=== PATIENT | male | born 1940 ===

== ENCOUNTER → 2018-12-27 09:39 | Outpatient (CLI) | payer MEDICARE, OTHER, SELFPAY ==
--- NOTE | 2018-12-27 | DI.MRI.S_ITS ---
PROCEDURE: MR LUMBAR SPINE WO CON INDICATIONS: LOW BACK PAIN TECHNIQUE: Noncontrast sagittal T1 spin echo and T2 fast echo, sagittal STIR, axial T1 and T2 fast spin echo through the lumbar spine. In cases with scoliosis, additional coronal T2 fast spin echo may be performed. COMPARISON: None. FINDINGS: Image quality: Excellent. Alignment and Curvature: There is very mild levoscoliosis centered at L2-3 level. Straightening of normal lumbar lordosis is also noted. Bone Marrow: Marrow is of normal overall signal. No acute vertebral body compression fractures. Spinal Cord: Conus medullaris terminates at the T12-L1 level. Visualized cord demonstrates normal signal and size. Paraspinous Soft Tissues: No paravertebral masses. L1-L2: Decreased intervertebral disc space and degenerative endplate changes are seen. Broad-based disc bulge and bilateral facet arthrosis is seen causing moderate central canal stenosis left worse than right bilateral neuroforaminal narrowing. There is likely compression of bilateral exiting L1 nerve roots. L2-L3: Decreased intervertebral disc space and degenerative endplate changes are seen. Broad-based disc bulge and bilateral facet arthrosis is seen with moderate central canal stenosis and moderate to severe left worse than right bilateral neuroforaminal narrowing. There is compression of bilateral exiting L2 nerve roots. L3-L4: Near-complete loss of intervertebral disc space and degenerative endplate changes are seen. Broad-based disc bulge and bilateral facet arthrosis is seen causing moderate to severe central canal stenosis and bilateral neuroforaminal narrowing. There is likely compression of the lateral L3 nerve roots. L4-L5: Decreased intervertebral disc space and degenerative endplate changes are seen. Broad-based disc bulge and bilateral facet arthrosis with hypertrophy of ligamentum flavum is seen causing moderate to severe central canal stenosis and left worse than right bilateral neuroforaminal narrowing. There is compression of bilateral L4 and L5 nerve roots. L5-S1: Decreased intervertebral disc space and degenerative endplate changes are seen. Diffuse disc bulge and bilateral facet arthrosis is seen with mild to moderate central canal stenosis and moderate to severe bilateral neuroforaminal narrowing. There is compression of bilateral L5 nerve roots. IMPRESSION: #1. Degenerative endplate changes and bilateral facet arthrosis throughout lumbar spine causing [id number] central canal stenosis and moderate to severe bilateral neuroforaminal narrowing as described above. #2. No acute compression fracture or spondylolisthesis. No marrow edema. Dictated by: Julius Basurto M.D. on 12/27/2018 at 13:04 Approved by: Julius Basurto M.D. on 12/27/2018 at 14:36
== END ==
PROVIDERS: Family Provider Family Medicine; PCP Family Medicine; Visit Provider Orthopaedic Surgery
DX: M47.816 Spondylosis without myelopathy or radiculopathy, lumbar region (principal); M47.817 Spondylosis without myelopathy or radiculopathy, lumbosacral region; M51.26 Other intervertebral disc displacement, lumbar region; M51.27 Other intervertebral disc displacement, lumbosacral region
CPT/HCPCS: 72148

== ENCOUNTER 2019-07-03 11:27 | Inpatient (IN) | payer MEDICARE, OTHER, SELFPAY ==
[2019-06-19 08:51] VITALS: BMI 30.7
[2019-07-03] VITALS (14 sets, daily range): BP systolic 97–144; BP diastolic 41–78; PULSE 64–100; RESP 10–19; TEMP 36.1–36.7; O2SAT 95–99; BMI 30.7
--- NOTE | 2019-07-03 | DI.RAD.S_ITS ---
PROCEDURE: XR LUMBAR SPINE 2-3V INDICATIONS: L5-S1 TLIF TECHNIQUE: 2 views of the lumbar spine were acquired. COMPARISON: [facility] [place], RF, LUMBAR TRANSFORAMINAL ESTEPHANIE, 02/16/2019, 11:08. [facility] [place], CR, XR LUMBAR SPINE WITH OBLIQUES, 01/23/2019, 14:05. [facility], MR, MR LUMBAR SPINE WO CON, 12/27/2018, 9:44. FINDINGS: Bones: Normal alignment is established after placement of transverse pedicle screws and vertical fixation rods with interbody disc prosthesis placement vertical fixation rods with disc prosthesis at L5-S1. Soft tissues: Overlying bowel gas pattern is normal. No suspicious soft tissue calcifications. IMPRESSION: Normal alignment after operative fusion L5-S1. Dictated by: Abhinav Evans M.D. on 07/03/2019 at 16:15 Approved by: Abhinav Evans M.D. on 07/03/2019 at 16:16
[2019-07-03] MEDS: LACTATED RINGERS 1,000 ML 42 ML IV ×2 (12:41→15:40)
[2019-07-03] MEDS: ACETAMINOPHEN 325 MG TABLET 975 MG PO (12:41)
--- NOTE | 2019-07-03 13:09 | PM.PREOP ---
Pre-operative Note Interval Note History & Physical reviewed/Exam performed by Physician: Yes Changes to H&P: No
[2019-07-03] MEDS: CEFAZOLIN 2 GM/100 ML FROZ.PIGGY IV ×2 (13:50→21:04)
--- NOTE | 2019-07-03 14:30 | SUR.OPER ---
Prone on spine table, head in foam head support, padded chest and pelvic supports, gel pad at knees, lower legs supported by pillows; nipples, genitalia and toes free of pressure, arms secured on foam padded arm boards at <90 degrees abduction. Tape over blanket at thigh secured to table.
[2019-07-03] MEDS: BUPIVACAINE 0.25% W/ EPI (PF) 10 ML VIAL 30 ML INJ (14:34)
[2019-07-03] MEDS: BUPIVACAINE LIPOSOME 266 MG/20 ML VIAL INJ (14:35)
--- NOTE | 2019-07-03 15:56 | PM.PREOP ---
Pre-operative Note Interval Note History & Physical reviewed/Exam performed by Physician: Yes Changes to H&P: No
--- NOTE | 2019-07-03 15:57 | P.OP_ITS ---
Operative Date/Time/Diagnoses Date of procedure: 07/03/19 Time of procedure: 12:57 Pre-op diagnosis: 1. L4-5, L5-S1 spinal stenosis 2. L4-5, L5-S1 spondylosis with radiculopathy Post-op diagnosis: same Procedure & Clinicians Procedure: 1. L5-S1 Postero-lateral and posterior interbody fusion 2. L5-S1 interbody cage placement. 3. L5-s1 decompressive laminectomy with bilateral facetecomies 4. L5-S1 Posterior non-segmental instrumentation 5. L4-5 left hemilaminectomy 6. Center Sandwich of bone marrow from iliac crest 7. Utilization of microsurgical technique and operating microscope Same procedure as scheduled: Yes Indications: Patient has been having chronic back pain and worsening lumbar radiculopathy. Patient failed multiple conservative management with worsening pain weakness and numbness in her lower extremity. Patient has been having difficulty performing activity of daily living. After discussing risks benefits of treatment options, patient elected proceed with surgery. Surgeon: Florence Bryant Higher Level Teaching Assistant: Katerina Orozco Click Yes if Unassisted: No Anesthesia Type: General Operative Notes Closure Type: primary Specimen(s): none sent Prosthetic devices, grafts, tissues, transplants, or devices: Globus revolve screws, Rise cage Estimated Blood Loss (mL): 50 Blood products transfused: none Procedure in detail: Patient was seen in the preoperative area. Risks and benefits of the surgery was discussed with the patient. Informed consent was obtained from the patient and placed in the chart. Surgical site was marked. Patient was taken to the operative room. General anesthesia was administered. Prophylactic antibiotic was given to the patient less than 30 min before the incision was made. Patient was placed into a prone position on the Angel table. Patient's back was then prepped and draped in the sterile fashion. Time- out was performed at this time. Using AP and lateral C-arm imaging the interval between L4-5 L5-S1 was identified and marked on patient's back. A 2 inch incision 2 in from midline was made on the left side first. The fascia was incised in line with skin incision. Globus MARS retractors was placed inside the incision and docked onto the L5 lamina. Using microsurgical technique and operating microscope, a L5 laminectomy and L5-S1 facetectomy was performed using a Kerrison rongeur. Patient was found have severe neural foramen stenosis which was fully decompressed after the facetectomy was completed. The disc space at L5-S1 was identified. And a total diskectomy was performed at L5-S1 level. The endplates were decorticated using a rasp and shaver. The total diskectomy and dec ortication was performed at L5-S1 level in order to to accomplish a L5-S1 fusion. The local bone from the laminectomy and facetectomy was saved for local bone grafting. After the total diskectomy and decortication was completed, Globus viacell bone graft material was combined with local bone that was harvested earlier. At this time, a separate skin is incision was made over the iliac crest. A Jamshidi needle was inserted into the iliac crest through a separate skin incision. 5 cc of bone marrow aspiration was obtained through the separate skin incision using a Jamshidi needle from the iliac crest. The bone marrow aspiration was combined with local bone and the via cell bone grafting material. The bone grafting material was placed into the L5-S1 interbody space along with a expandable cage. The cage was expanded to its maximum height using the torque limiting screwdriver. At this time the MARS retractor was redirected over the L4 lamina. Using microsurgical technique and operating microscope, a L4-5 heminectomy was performed using the Kerrison rongeur. The ligamentum flavum was also resected at the side of the hemilaminectomy for further decompression of the epidural space. At this time a mirror image incision was made on the right side. The fascia was incised in line with the skin incision. Globus MARS retractor was inserted and docked onto the L5-S1 posterolateral gutter. Using the power drill, posterior- lateral decortication was performed at L5-S1 level until bleeding cortical bone was identified. The remaining bone grafting material was placed into the L5-S1 posterior lateral gutter he order to accomplish posterolateral fusion at the L5- S1 level. Using the double C-arm technique, pedicle screws were placed into the L5 and S1 pedicles bilaterally. This was done by placing the Jamshidi needle into the pedicles, then placing the guidewires over the Jamshidi needle, and finally placing the cannulated screws over the guidewires bilaterally. After the pedicle screws were placed, 2 titanium rods was locked into the heads of the pedicle screws using locking caps and torque limiting screwdriver. After all the hardware was placed, and confirmed with AP and lateral C-arm imaging, the wound was then irrigated with sterile normal saline and packed with Ray-Edyta gauze for 3 min to accomplish hemostasis. After the gauze was removed the deep fascia was closed with #1 Vicryl suture. The subcutaneous layer was closed with 2-0 Vicryl. The skin was closed with skin kiesha. Patient tolerated the procedure well. There were no complications. Complications: none Post-operative Condition: stable Disposition: PACU Plan for aftercare: Admit to inpatient hospital
[2019-07-03] MEDS: hydrOXYzine 50 MG/ML INJ 25 MG IM (16:10)
[2019-07-03] MEDS: HYDROMORPHONE 2 MG INJ IV ×4 (16:10→16:25)
[2019-07-03] MEDS: SODIUM CHLORIDE 0.9% 1,000 ML 100 ML IV (17:52)
--- NOTE | 2019-07-03 17:53 | PC.NURSE ---
Post-op note: Ole brought from PACU to rm 212 med-surg at 1641, VS stable, BP slightly hypotensive, he denies dizziness or nausea. Oriented x 3 and situation. He reports back is sore but denies pain or need for intervention except for repositioning. Told me I feel like I need to turn but it is not because I am having pain. Back drsg with small spot of shadow drainage to distal drsg. 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 He has small scattered bruising and skin tear to left elbow, open to air, CDI.
[2019-07-03] MEDS: PANTOPRAZOLE 20 MG TABLET PO (21:04)
[2019-07-03] MEDS: CHOLECALCIFEROL (VITAMIN D3) 1,000 UNIT TABLET 1000 UNIT PO (21:04)
[2019-07-03] MEDS: DOCUSATE 100 MG CAPSULE PO (21:04)
[2019-07-03] MEDS: SENNOSIDES 8.6 MG TABLET 17.2 MG PO (21:04)
[2019-07-03] MEDS: MULTIVITAMIN 1 TABLET 1 TAB PO (21:04)
[2019-07-03] MEDS: VIT C/E/ZN/COPPR/LUTEIN/ZEAXAN CAPSULE 1 CAP PO (21:04)
[2019-07-04] MEDS: OXYCODONE IR 5 MG TABLET 10 MG PO ×2 (00:04→05:00)
--- NOTE | 2019-07-04 01:47 | PC.NURSE ---
Addendum entered by Kira Gimenez R.N. 07/04/19 05:05: Complains of 8/10 back pain dull, achy; medicated with Oxycodone. Original Note: Patient is alert and oriented. MESA GRANDE with bilateral hearing aids. Complains of left eye tearing and vision blurry; no redness, pain or itching. Breath sounds CTA with RA sat of 96%. HRR. Denies nausea. BT present but denies flatus as yet. Voiding without dysuria, frequency or urgency and is continent. Able to turn himself in bed. Up to bathroom with walker and 1 assist. Dressing to back with shadow drainage outlined. CMS intact except for chronic numbness in bilateral feet. Wearing calf SCD's. Has bruise with scabbed abrasion on left elbow and also has bruise on right upper arm. Scabbed abrasions on posterior head and to right side of head. Noted bruise on left thigh as well. Complained of 4/10 pain and was medicated with Oxycodone with pain decreasing to 2/10. Fall risk score is high and bed alarm is activated. Bilateral calf SCD's placed at start of shift.
[2019-07-04 03:40] VITALS: BP 131/61; PULSE 70; RESP 17; TEMP 36.8; O2SAT 96
[2019-07-04] MEDS: CEFAZOLIN 2 GM/100 ML FROZ.PIGGY IV (05:02)
[2019-07-04] MEDS: PANTOPRAZOLE 20 MG TABLET PO (05:39)
[2019-07-04 08:00] VITALS: BP 135/72; PULSE 71; RESP 16; TEMP 36.7; O2SAT 92
[2019-07-04 09:09] LABS: Hematocrit 34.5 % (41-53); Hemoglobin 11.8 g/dL (13.5-17.5)
--- NOTE | 2019-07-04 09:28 | PT.IIE ---
Current Diagnoses Flatback syndrome, site unspecified (07/03/19) Spinal stenosis, lumbar region without neurogenic claudication (07/03/19) Surgery Performed Operation Date: 07/03/19 13:45 Actual Procedures p L4-5 hemilaminectomy, L5-S1 TLIF w/ posterior instrumentation - Florence Bryant MD Surgical History (Last Updated 06/19/19 @ 09:19 by Maddy Louis, RN) History of colonoscopy (Acute 05/20/17) Hx of bilateral cataract extraction (Acute) Hx of laminectomy (Acute ~2008) Hx of tonsillectomy (Acute) Hx of transurethral resection of prostate (Acute) Hx of umbilical hernia repair (Acute) Medical History (Last Updated 06/19/19 @ 09:19 by Maddy Louis RN) BCC (basal cell carcinoma), face (Acute) BPH (benign prostatic hyperplasia) (Acute) Diverticulosis (Acute) Easy bruisability (Acute) Femur fracture, right (Acute) GERD (gastroesophageal reflux disease) (Acute) Hearing impaired (Acute) HTN (hypertension) (Acute) Iron deficiency anemia (Acute) Neuropathy (Acute) Osteoarthritis (Acute) Perforated appendicitis (Acute ~2015) Psoriasis (Acute) Sleep apnea (Acute) Physical Therapy Inpatient Evaluation/Re-Eval M1 PT/OT-IP Prior Functional Status Start: 07/04/19 11:42 Freq: NEEDED Status: Active Protocol: Document 07/04/19 09:28 AB (Rec: 07/04/19 12:13 AB [id number]) Medical Review Prior Functional Status Medical History Reviewed Yes Communication able to make needs known Mobility and Gait pt stated that he is independent with all mobilities and ambulation without AD Social History Household Members none Living Arrangements Mobile home Number of Floors (Floors) One Floor Number of Stairs To Enter/Railing? no steps to enter; pt stated that he will stay at his friends house overnight and has 3 small steps to ente and can hold on to the wall for support Home Environment Standard Height Toilet,Tub/ Shower Home Equipment Front Wheel Walker,Straight Cane,Raised Toilet Seat Without Armrests Additional Social History Comment pt stated that he just sponge bathes and does not take a shower M2 PT-IP Current Condition Start: 07/04/19 11:42 Freq: NEEDED Status: Active Protocol: Document 07/04/19 09:28 AB (Rec: 07/04/19 12:13 AB [id number]) Physical Therapy Current Condition Current Condition Evaluation Date 07/04/19 Treatment Diagnosis s/p L5S1 posterior fusion; L4- S1 lami; difficulty in walking Onset Date 07/03/2019 Precautions Lumbar Precautions Log Roll,No Twisting,Limit Bending,Lifting Restriction of 10 lbs,Gait Belt above Incisional Area M3 PT-IP Subjective Start: 07/04/19 11:42 Freq: NEEDED Status: Active Protocol: Document 07/04/19 09:28 (Rec: 07/04/19 12:13 AB [id number]) Subjective Physical Therapy Visit Type Type Initial Evaluation Visit Start Time 09:28 Visit Stop Time 09:58 Total Visit Minutes 30 Number of [employer] OPERATOR Visits 0 Physical Therapy Visit Comments Patient Comments pt agreeable to do PT Therapy Pain Assessment Pain When Pain Assessed At Rest Pain Present Pain Present Denied Pain M4 PT-IP Mobility and Gait Start: 07/04/19 11:42 Freq: NEEDED Status: Active Protocol: Document 07/04/19 09:28 (Rec: 07/04/19 12:13 AB [id number]) PT-Bed Mobility Assessment Rolling Type of Rolling Log Rolling Supine to Sit Supine to Sit Standby Assistance Sit to Supine Sit to Supine Standby Assistance Scooting Scooting to Edge of Bed Standby Assistance Scooting Up and Down in Bed Standby Assistance PT-Transfer Assessment Sit to and From Stand Sit to and from Stand Standby Assistance,1 Person Assistance Equipment Transfer Assistive Device Gait Belt,Front Wheeled Walker Orthotic/Prosthetic Devices or Brace: Yes Transfers Transfer Destination Chair Transfer Technique ambulated using FWW Transfer Ability Level of Assist Standby Assistance,1 Person Assistance,Use of Upper Extremities Gait Assessment Gait Gait Assistance Required: Standby Assistance Distance (Feet) 150 Able to Maintain Weight Bearing Status Yes During Gait Assistive Devices Assistive Device Gait Belt,Front Wheeled Walker Orthotic/Prosthetic Devices or Brace: No Gait Deviations General Gait Pattern Antalgic,Lateral Trunk Lean Factors Limiting Gait Function Factors Limiting Gait Function Poor Balance Comments Gait Comments pt ambulated using FWW SBA ~ 150 ft. ambulated without AD ~ 50 ft SBA to occasional CGA. educated pt on safety and use of FWW for outdoors/long distance ambulation. pt agreed. Stair Climbing Assessment Evaluation Level of Assist On Stairs 1 Person Assistance Devices Stair Climbing Assistive Devices Left Railing,Right Railing Technique/Endurance Stair Climbing Direction Ascend and Descend Stair Climbing Technique Step to Step Number of Steps Climbed 3 Query Text: Stair Climbing Set # Repetitions (reps) 1 Comments Stair Climbing Comments completed up/down 3 steps using bilateral rails SBA up/down platform step and using L wall for support SBA PT-Balance Assessment Sitting Balance and Reactions Static Sitting Balance Ability Good Dynamic Sitting Balance Ability Good Standing Balance and Reactions Static Standing Balance Ability Good Dynamic Standing Balance Ability Fair Device Used FWW M5 PT-IP Objective Assessments Start: 07/04/19 11:42 Freq: NEEDED Status: Active Protocol: Document 07/04/19 09:28 (Rec: 07/04/19 12:13 [id number]) Orientation Orientation/Cognition Level of Alertness Alert Orientation Name,Age,Birthday,Month,Date, Year,Day of Week,Place, Situation Language Function Ability No Deficits Noted Safety Awareness Understands Safety Issues Memory Description No Deficits Noted Gross Range of Motion Lower Extremity ROM Assessment Within Functional Limits Strength Lower Extremity Strength Assessment Within Functional Limits Coordination Assessment Gross Coordination Gross Coordination WNL Sensation Assessment Sensation Gross Sensation Right LE Impaired Sensation Description Paresthesia Comments Sensation Comments stated chronic L big toe paresthesia Muscle Tone Muscle Tone WNL Yes M6 PT-IP Treatment Start: 07/04/19 11:42 Freq: NEEDED Status: Active Protocol: Document 07/04/19 09:28 AB (Rec: 07/04/19 12:13 [id number]) Physical Therapy Treatment Education Education Provided Precautions,Weight Bearing Status,Post-Op Packet,Safety M7 PT-IP Assessment and Plan Start: 07/04/19 11:42 Freq: NEEDED Status: Active Protocol: Document 07/04/19 09:28 (Rec: 07/04/19 12:13 [id number]) PT Summary Assessment and Plan Potential Rehabilitation Potential Good Status of Condition at Evaluation Stable Summary Impairments Pain,ROM,Strength,Balance, Coordination,Sensation,Tone, Cognition,Bed Mobility, Transfers,Gait,Activity Tolerance Assessment Summary pt requiring SBA with mobility and plans to go home today. pt may go home when medically stable. Goals Bed Mobility Goal Independent Transfer Goal Independent,Front Wheeled Walker Gait Goal Independent,Front Wheel Walker Gait Distance 300 Days to Meet Goals 5 Frequency of Treatment Frequency Of Treatment Twice a Day Treatment Plan Physical Therapy Treatment Plan Bed Mobility Training,Transfer Training,Gait Training, Therapeutic Exercise,Balance Retraining,Post Op Education, Discharge Planning,Hot or Cold Pack,Neuromuscular Re-ed, Coordination Retraining,Manual Therapy Other Recommendations and Next Treatment ambulation, stair climbing Focus Recommendations To Nursing Amount of Assist Needed Standby Assistance Discharge Recommendations PT Discharge Recommendations Home with Assistance
[2019-07-04 09:41] VITALS: BP 137/64; PULSE 72
[2019-07-04] MEDS: LOSARTAN 50 MG TABLET 100 MG PO (09:41)
[2019-07-04] MEDS: CHOLECALCIFEROL (VITAMIN D3) 1,000 UNIT TABLET 1000 UNIT PO (09:41)
[2019-07-04] MEDS: CYANOCOBALAMIN (VITAMIN B-12) 500 MCG TABLET 6000 MCG PO (09:41)
[2019-07-04] MEDS: hydroCHLOROthiazide 25 MG TABLET 50 MG PO (09:42)
[2019-07-04] MEDS: TAMSULOSIN 0.4 MG CAPSULE PO (09:42)
[2019-07-04] MEDS: VIT C/E/ZN/COPPR/LUTEIN/ZEAXAN CAPSULE 1 CAP PO (09:42)
[2019-07-04] MEDS: DOCUSATE 100 MG CAPSULE PO (09:42)
[2019-07-04] MEDS: SODIUM CHLORIDE 0.9% FLUSH 10 ML IV (09:42)
--- NOTE | 2019-07-04 10:50 | OT.IP.EVAL ---
Current Diagnoses Flatback syndrome, site unspecified (07/03/19) Spinal stenosis, lumbar region without neurogenic claudication (07/03/19) Surgery Performed Operation Date: 07/03/19 13:45 Actual Procedures p L4-5 hemilaminectomy, L5-S1 TLIF w/ posterior instrumentation - Florence Bryant MD Past Medical History (Last Updated 06/19/19 @ 09:19 by Maddy Louis, RN) BCC (basal cell carcinoma), face (Acute) BPH (benign prostatic hyperplasia) (Acute) Diverticulosis (Acute) Easy bruisability (Acute) Femur fracture, right (Acute) GERD (gastroesophageal reflux disease) (Acute) Hearing impaired (Acute) HTN (hypertension) (Acute) Iron deficiency anemia (Acute) Neuropathy (Acute) Osteoarthritis (Acute) Perforated appendicitis (Acute ~2015) Psoriasis (Acute) Sleep apnea (Acute) Surgical History (Last Updated 06/19/19 @ 09:19 by Maddy Louis RN) History of colonoscopy (Acute 05/20/17) Hx of bilateral cataract extraction (Acute) Hx of laminectomy (Acute ~2008) Hx of tonsillectomy (Acute) Hx of transurethral resection of prostate (Acute) Hx of umbilical hernia repair (Acute) Occupational Therapy Inpatient Evaluation/Re-Eval M1 PT/OT-IP Prior Functional Status Start: 07/04/19 11:42 Freq: NEEDED Status: Active Protocol: Document 07/04/19 10:50 PJM (Rec: 07/04/19 15:49 PJM [id number]) Medical Review Prior Functional Status Medical History Reviewed Yes Diet/Fluid Consistency Regular Communication WNL Mobility and Gait Pt states that he is independent mobility without AD. He denies recent falls. Activities of Daily Living and IADL's Pt indep with all self care, IADLS. He has assist 1x week from person who cleans up after his 2 pet parrots. Prior Functional Level (Other details) Pt drives. Pt plans to stay overnight with supportive next door neighbor for 1 night after d/c. Social History Household Members none Living Arrangements Mobile home Number of Floors (Floors) One Floor Number of Stairs To Enter/Railing? 1 stair to enter Home Environment High Toilet,Tub/Shower Home Equipment Front Wheel Walker Employment Status Retired Additional Social History Comment Pt is a retired dentist. M2 OT-IP Current Condition Start: 07/04/19 08:33 Freq: Status: Active Protocol: Document 07/04/19 10:50 PJM (Rec: 07/04/19 15:49 PJM [id number]) Occupational Therapy Current Condition Current Condition Evaluation Date 07/04/19 Treatment Diagnosis decreased self care, mobility s/p L4-5 socrates lami, TLIF Post Operative Precautions Lumbar Precautions Log Roll,No Twisting,Limit Bending,Lifting Restriction of 10 lbs,Gait Belt above Incisional Area M3 OT- IP Subjective and Pain Start: 07/04/19 08:33 Freq: Status: Active Protocol: Document 07/04/19 10:50 PJM (Rec: 07/04/19 15:49 PJM [id number]) OT- Subjective Occupational Therapy Visit Type Type Initial Evaluation Visit Start Time 09:59 Visit Stop Time 10:50 Total Visit Minutes 51 Occupational Therapy Visit Comments Patient Comments I think I will do fine at home. I don't have hardly any pain. Patient/Caregiver Goals to go home later today OT Pain Assessment Pain When Pain Assessed At Rest Location back Intensity 1 Scale Used Numeric (1 - 10) Description Aching,Acute M4 OT- IP ADL's Start: 07/04/19 08:33 Freq: Status: Active Protocol: Document 07/04/19 10:50 PJM (Rec: 07/04/19 15:49 PJM [id number]) OT [facility] General Evaluation Self-Feeding Ability Independent OT ADL-Grooming General Evaluation Grooming Ability Independent Comments OT Grooming Comments after education re: body mechanics OT ADL-Oral Care General Eval Oral Care Ability Independent Areas of Assistance Brushing Teeth Devices Oral Care Devices Toothbrush Comments Oral Care Comments after education re: body mechanics OT ADL-Dressing General Eval Upper Body Dressing Ability Independent Lower Body Dressing Ability Independent Areas Needing Assistance Underpants/Brief,Pants/Shorts, Socks,Shoes Comments OT Dressing Comments Provided education re: body mechanics, provided conservation biology professor at pt request. Pt able to don socks by crossing foot over opposite knee with good body mechanics after education. Pt declines sock aid and wears slip on shoes. OT ADL-Toileting General Evaluation Toileting Ability Independent Comments OT Toileting Comments provided education re: body mechanics OT ADL-Bathing Comments OT Bathing Comments Pt declines to shower here, states he showers only 1 x week due to dry skin and does daily sponge bath. Provided education re: body mechanics. M5 OT- IP IADL's Start: 07/04/19 08:33 Freq: Status: Active Protocol: Document 07/04/19 10:50 PJM (Rec: 07/04/19 15:49 PJM [email or web address]) OT-Instrumental Activities of Daily Living Deficits IADL Deficits Identified Deficits Home Safety Awareness Awareness of Need for Assistance at Home Good Awareness Ability to Problem Solve Emergency Able to Problem Solve Situations Medication Management Medication Management No Deficits Identified Money Management Money Management No Deficits Identified Meal Preparation Meal Preparation Caregiver Provides Assist Meal Preparation Comments neighbors will assist PRN Fish Smoker Fish Smoker Caregiver Provides Assist Fish Smoker Comments provided education re: body mechanics, neighbors to assist PRN Driving Driving Caregiver Provides Assist Driving Comments neighbors to assist until pt able M6 OT- IP Functional Cognition Start: 07/04/19 08:33 Freq: Status: Active Protocol: Document 07/04/19 10:50 PJM (Rec: 07/04/19 15:49 PJM [id number]) Cognitive Factors Limiting Selfcare Function Cognitive Ability Level of Alertness Alert Patient Orientation Name,Age,Birthday,Month,Date, Year,Day of Week,Place, Situation Attention Span Ability Capable of Focused Attention, Capable of Sustained Attention Ability to Follow Commands Able to Follow Multi-Step Commands Memory Description Short Term Impaired Safety Awareness No Deficits Noted Problem Solving Ability No deficits Noted Cognitive Comments Cognitive Assessment Comments Pt states he has short term memory deficits. Provided spine precaution packet and showed pt written information sheet re: spine precautions, body mechanics and adapted ADL techniques. OT- Vision and Hearing OT- Hearing Assessment OT- Hearing Assessment Hearing Impaired,Right Ear Impaired,Left Ear Impaired,Use of Hearing Aids OT- Vision Assessment Visual Acuity WFL Vision Assessment Comments Pt does report some excessive watering and blurred vision in L eye since surgery. Per RN he will have segmental paver installer check his eye on his way home from hospital. M7 OT- IP Mobility and Balance Start: 07/04/19 08:33 Freq: Status: Active Protocol: Document 07/04/19 10:50 PJM (Rec: 07/04/19 15:49 PJM [id number]) OT- Bed Mobility Assessment Rolling Type of Rolling Roll to Left Level of Assistance Independent Supine to Sit Supine to Sit Assist Independent Sit to Supine Sit to Supine Assist Independent Scooting Scooting to Edge of Bed Independent OT-Transfer Assessment Sit to and From Stand Sit to and from Stand Independent Transfers Transfer Ability Independent Technique Transfer Destination Bed,Car,Chair,Toilet Transfer Technique Stand Step Pivot Devices Transfer Assistive Devices None Comments Mobility Comments Practiced log roll in/out of bed at pt request, and he is independent with transfers without a device. OT- Gait Assessment Gait Gait Assistance Required: Independent Distance (Feet) 5 Assistive Devices Assistive Device None Comments Gait Ability Comments Pt walking short distances in room without a device, but plans to use FWW in his home. OT- Balance Assessment Sitting Balance and Reactions Static Sitting Balance Ability Good Standing Balance and Reactions Static Standing Balance Ability Good Dynamic Standing Balance Ability Good Comments Other Balance Tests/Deviations/Treatment during lower body dressing : M8 OT- IP Objective Assessments Start: 07/04/19 08:33 Freq: Status: Active Protocol: Document 07/04/19 10:50 PJM (Rec: 07/04/19 15:49 PJM [id number]) OT Gross Range of Motion Upper Extremity Range of Motion Assessment Within Functional Limits OT Strength Upper Extremity Strength Assessment Within Functional Limits Hand Nanotechnologist Strength Hand Dominance Right OT- Coordination Assessment Comments Coordination Comments BUE WFL OT-Muscle Tone Assessment Muscle Tone WNL Yes OT Sensation Assessment Comments Summary Comments BUE WNL per pt Edema Edema Absent M9 OT- IP Assessment and Plan Start: 07/04/19 08:33 Freq: Status: Active Protocol: Document 07/04/19 10:50 PJM (Rec: 07/04/19 15:49 PJM [id number]) OT Summary Assessment and Plan Potential Rehabilitation Potential Good Summary Progress Towards Goals Safe For Discharge Assessment Summary Low complexity OT assessment and all OT education completed in one visit on this 79 yr old male s/p L4-5 socrates lami with TLIF. Provided education re: lumbar spine precautions, body mechanics, chair selection, posture, adapted ADL techniques and bathroom safety equipment options. Pt verbalizes and demonstrates understanding of all education. Pt plans to d/c home later today with assist from 2 supportive neighbors. Frequency of Treatment Frequency Of Treatment Discharge Discharge Recommendations OT Discharge Recommendations Home with Assistance Home Equipment Needs conservation biology professor provided
--- NOTE | 2019-07-04 11:53 | PC.NURSE ---
Blurry vision: Patient C/O L eye watering all night and blurry vision in L eye as well. This pattern chart writer spoke w/ Dr Wise (patient's anesthesiologist during surgery yesterday) and ortho PA's re: patient's symptoms. Dr Wise came up and spoke with patient and wanted him to be seen by opthamology either today or tomorrow. Patient off floor to Dr Wade's office for his opthamology check-up at this time (was taken down via wheelchair by charge hand Adrian). Patient has been cleared by PT and OT, plan as of now is to d/c home this afternoon.
--- NOTE | 2019-07-04 12:18 | CM.DPC ---
DCP/Assessment: Reviewed chart. Patient is a 79yr old male admitted [facility] spine surgery performed on 07-03-[address] Bryant. PCP listed is Krystal Chacon. Primary payor is 1)Medicare 2)[employer]. Attempted to meet with patient to explain CM/SW roles. Per RN/Preston patient is off the floor for outpatient eye appointment. It is anticipated that patient will discharge home today with no d/c planning needs. P: Home today. NAPOLEON Abrams Discharge Planning/Care Management CM Discharge Assessment Start: 07/04/19 12:15 Freq: Status: Active Protocol: Document 07/04/19 12:15 KJS (Rec: 07/04/19 12:18 KJS [id number]) Discharge Planning Assessment Assigned Tube Station Attendant NAPOLEON Abrams Contact Information Alfie Fenton (son) [phone] Advance Directives? No History Provided By Medical Record Prior Living Arrangements Mobile home Household Members none Independent with ADL's Yes Is patient alert and oriented? Yes Caregiver for Another No Barriers to Discharge No Comment Unknown patient at eye appointment at time of visit. Discharge Plan Home Transportation Arrangement Home Review Status In Process Next Review Type Continued Stay Review Pre-Anesthesia Assessment Start: 06/19/19 08:51 Freq: Status: Complete Protocol: Document 06/19/19 08:51 CAB (Rec: 06/19/19 09:31 CAB [id number]) Pre-Anesthesia Assessment PAC Comment 06/19/19-Requested labs/EKG, medical clearance from [facility], only received EKG-poor quality Patient Information Reviewed Via Phone Assessment Assessment Completed With Patient Diagnostic Results EKG Comment [facility] faxed over EKG only Primary Care Provider Krystal Chacon Seen Specialist in Last 12 Months Yes Specialist Seen Orthopedist,Urologist Primary Language Burmese Deck Engine Operator Required No Height 180.34 cm Weight 99.79 kg Body Mass Index (BMI) 30.7 Hearing Ability Hard of Hearing,Use of Hearing Aid Visual Assist Glasses Dentition Type Teeth, Natural Present,Teeth, Missing Barriers to Learning Age related,Memory Other Aids No Hx Anesthesia Reactions No Hx Family Anesthesia Reaction No Hx Malignant Hyperthermia No Hx Blood Transfusions Yes: r/t perforated appendix Hx Blood Transfusion Reaction No Anesthesia Review Requested No alcohol intake current alcohol intake frequency 0-2 drinks per day Smoking Status Former smoker Tobacco type cigarettes how long ago did patient quit smoking Quit over 10 years ago Substance Use Type does not use Pain Present Pain Reported Musculoskeletal Symptoms Abnormal Gait,Back Pain, Difficulty Walking,Joint Pain History of Falling (Recent or History of Yes ) Patient is completely paralyzed or No completely immobile Mental Status Oriented to own ability Is patient on oxygen? No Does patient have SILVESTRE/SOB No Hx Sleep Apnea Yes: Does not tolerate CPAP CPAP/BIPAP use prescribed not used Currently Taking a Beta Katerin No Can You Climb a Flight of Stairs Without No: A little, not significant SOB Hx Chest Pain No Hx SOB No Hx Syncope or Dizziness No Anti-Coagulant Therapy No Has a Epic Application Coordinator No Cardiac Testing No Hx Pacemaker/ICD No Pacemaker Rep Required? No Cardiac Clearance Received Not Applicable Diet Type At Home Regular dysphagia No Bladder Pattern Frequency,Urgency Urinary Catheter Present No Hx Urinary Self Catheterization No Diabetes No Hx Drug Resistant Organism No Presence of External or Internal Medical Yes: Bilateral hearing aids, Devices hernia mesh Have you traveled outside the [facility] in the last 30 days? Marital Status Lives With none Prior Living Arrangements Mobile home Support System [employer]ow[employer],Friend(s) Does the Patient Have Assistance After Yes Surgery Patient Discharge Plan Description Other Comment Will stay w/neighbor [facility] Feels Safe in Current Environment Yes Been Physically Hurt or Threatened By a No Person in Current Environment Do you have thoughts of harming yourself None or others? Are you currently considering suicide? No Do you have a plan to hurt yourself or No Plan others? Do You Have Any Spiritual Beliefs That No May Affect Your HC Choices? Do You Have Any Cultural Practices That No May Affect Your HC Choices? Comment Zoroastrian Who Can We Speak to About Patient's Care Family, friends Identifying Code for Release of Patient Declines to issue Information Health Care Proxy/Next of Kin Jerry Judge (Son, [id number]) Health Care Proxy Phone Number Pt to update dos Emergency Contact Name Jerry Judge (Son, [email or web address]) Emergency Contact Phone Number Pt to update dos Advance Directives? No Power of Auditor In Charge No PAC Instructions Durable medical equipment, Medications to take/avoid, Nasal antibiotic,No ETOH/ petroleum product on skin DOS, NPO,Post-op transportation,Pre -surgical wash,Sturdy shoes/ comfortable clothes,Do not bring valuables and remove jewelry
--- NOTE | 2019-07-04 12:39 | P.PN_ITS ---
Subjective Subjective Date Patient Seen: 07/04/19 Time Patient Seen: 08:00 Interval history: POD 1 s/p L5-S1 TLIF and L4-[address] Bryant. Patient is doing well, complains of mild pain in lower back. Rates 2/10. Able to ambulate to the bathroom. Has not mobilized with PT. Voiding without difficulty or assistance. No bowel movments, but passing gas. Patient denies fever, chills, chest pain, shortness of breath, nausea, vomiting, urinary/bowel incontinence. Exam Vital Signs (past 8 hours): - 07/04/19 08:00 07/04/19 09:41 Temperature 98.1 F Pulse Rate 71 72 Respiratory Rate 16 Blood Pressure 135/72 137/64 Pulse Oximetry 92 Oxygen Delivery Method Room Air Oxygen Flow Rate 0 Narrative Exam Narrative: 79 year old male is laying comfortably in bed, in no apparent distress. A&Ox3. Dressing CDI, SCDs in place. Sensory function grossly intact to light touch in LE bl. Dorsalis pedis 2+ bl. Able to actively dorsiflex/plantar flex. Calves warm, soft, compressible, non tender to palpation. Objective Labs Result Diagrams: 07/04/19 08:38 Labs: Laboratory Results - last 24 hr 07/04/19 08:38 Hgb 11.8 L Hct 34.5 L Assessment & Plan Post-op Postoperative Procedures: Procedures Operation Date: 07/03/19 13:45 Actual Procedures Side Surgeon p L4-5 hemilaminectomy, L5-S1 TLIF w/ posterior instrumentation Florence Bryant MD Postoperative day: 1 Postoperative status: doing well Postoperative plan: discharge Postoperative plan narrative: Patient is progressing well post-op day 1 s/p L5- S1 TLIF and L4-L5 hemilaminectomy Continue current pain control Continue SCDs Start PT Patient may discharge home today pending PT clearance Time Spent With Patient Time with patient: less than 15 minutes Quality VTE Deep Vein Thrombosis/Pulmonary Embolism Present on Admission: No
--- NOTE | 2019-07-04 14:19 | PC.NURSE ---
Discharge: IV dc'd intact. Old dressing removed (per MD order) and replaced with Coversite dressing. 2 parallel incisions on either side of midline (spine) were well-approximated with kiesha, no active bleeding or drainage noted. Reviewed all instructions with patient thoroughly and he stated no further questions. Given script for Oxycodone. All personal belongings sent with patient at time of discharge. Wheeled out to private vehicle by nursing staff.
== END 2019-07-04 14:26 | disposition home or self-care (01) | DRG 455 ==
PROVIDERS: Physician Assistant; Admitting Provider Orthopaedic Surgery Orthopaedic Surgery of the Spine; Family Provider Family Medicine; PCP Family Medicine; Visit Provider Orthopaedic Surgery Orthopaedic Surgery of the Spine
PROC: 0SG30AJ Fusion of Lumbosacral Joint with Interbody Fusion Device, Posterior Approach, Anterior Column, Open Approach (ICD-10-PCS; principal; 2019-07-03 13:45)
DX: M48.062 Spinal stenosis, lumbar region with neurogenic claudication (principal); M40.30 Flatback syndrome, site unspecified; M47.26 Other spondylosis with radiculopathy, lumbar region; M47.27 Other spondylosis with radiculopathy, lumbosacral region; M48.07 Spinal stenosis, lumbosacral region; I10 Essential (primary) hypertension; N40.0 Benign prostatic hyperplasia without lower urinary tract symptoms; K21.9 Gastro-esophageal reflux disease without esophagitis; Z87.891 Personal history of nicotine dependence
CPT/HCPCS: 36415; 72100; 76000; 85014; 85018; 94762; 97161; 97165; 97535; C1776; C9290; J0330; J0690; J1100; J1170; J2405; J2704; J3010; J3410

== ENCOUNTER 2021-11-27 08:05 | Outpatient (CLI) | payer MEDICARE, OTHER, SELFPAY ==
[2019-07-03 17:27] VITALS: BMI 30.7
== END 2021-12-01 09:16 | disposition home or self-care (01) ==
LOC: PHYS 08:07
PROVIDERS: Family Provider Family Medicine; PCP Internal Medicine; Referring Provider Internal Medicine; Visit Provider Internal Medicine
DX: G57.93 Unspecified mononeuropathy of bilateral lower limbs (principal)
CPT/HCPCS: 95886; 95910

== ENCOUNTER → 2022-08-13 12:04 | Outpatient (CLI) | payer MEDICARE, OTHER, SELFPAY ==
[2019-07-03 17:27] VITALS: BMI 30.7
[2022-08-13 12:46] LABS: Appearance Urine UA CLEAR; Bilirubin Urine UA NEGATIVE (NEGATIVE); Color Urine UA YELLOW; Glucose Urine UA NEGATIVE (Negative); Ketones Urine UA NEGATIVE (NEGATIVE); Leukocyte Esterase Urine UA NEGATIVE (NEGATIVE); Nitrite Urine UA NEGATIVE (Negative); Occult Blood Urine UA TRACE-INTACT (Negative); Protein Urine UA NEGATIVE (Negative); Specific Gravity Urine UA <=1.005 (1.000-1.035); Urobilinogen Urine UA 0.2 E.U./dL (0.2)
[2022-08-13 12:55] LABS: Bacteria Urine None Seen; Culture Indicated Urine Cult Not Indicated; RBC Urine 0-1/HPF (0-5/HPF); Squamous Epithelial Cell Urine 0-1 /HPF (0-5/HPF); WBC Urine None Seen (0-5/HPF)
== END ==
PROVIDERS: Family Provider Family Medicine; PCP Internal Medicine; Visit Provider Urology
DX: N99.111 Postprocedural bulbous urethral stricture, male (principal); R35.0 Frequency of micturition; R35.1 Nocturia; R39.14 Feeling of incomplete bladder emptying; R39.9 Unspecified symptoms and signs involving the genitourinary system; Z98.890 Other specified postprocedural states; Z90.79 Acquired absence of other genital organ(s)
CPT/HCPCS: 81001; 99214

== ENCOUNTER 2022-08-18 10:57 | Day surgery (SDC) | payer MEDICARE, OTHER, SELFPAY ==
[2019-07-03 17:27] VITALS: BMI 30.7
[2022-08-12 14:46] VITALS: BMI 29.8
[2022-08-18 11:27] VITALS: BMI 28.8
[2022-08-18 11:34] VITALS: BP 116/63; PULSE 75; RESP 8; TEMP 36.6; O2SAT 97
[2022-08-18] MEDS: LACTATED RINGERS 1,000 ML 21 ML IV (11:47)
--- NOTE | 2022-08-18 12:08 | PM.PREOP ---
Pre-operative Note COVID-19 COVID-19 status: Not tested Criteria for continued procedure: Delay expected to result in less-positive ultimate med/surg outcome and Non-surgical alternatives not available or appropriate per current SOC Interval Note History & Physical reviewed/Exam performed by Physician: Yes Changes to H&P: No
--- NOTE | 2022-08-18 12:52 | SUR.OPER ---
Lithotomy on padded OR bed, head on pillow, arms secured on padded arm boards at <90 degrees abduction. Legs secured in padded yellow fins stirrups.
[2022-08-18] MEDS: CEFAZOLIN 2 GM/100 ML PREMIX 100 ML IV (13:10)
[2022-08-18 13:34] VITALS: BP 104/57; PULSE 87; RESP 13; TEMP 36.6; O2SAT 97
[2022-08-18 13:38] VITALS: BP 111/48; PULSE 84; RESP 13; O2SAT 97
[2022-08-18 13:43] VITALS: BP 109/49; PULSE 83; RESP 15; O2SAT 95
[2022-08-18 13:48] VITALS: BP 118/56; PULSE 81; RESP 11; O2SAT 96
--- NOTE | 2022-08-18 15:46 | PM.OP.1 ---
Procedure & Clinicians Procedure: Cystoscopy with over the wire dilation of urethral stricture. Same procedure as scheduled: Yes Indications: 82-year-old male presented with complaints of resurgence lower urinary tract symptoms and bladder outlet obstruction after a distant history of Transurethral resection of the prostate. Had flexible cystoscopy he was found to have a proximal bulbar urethral stricture that was quite tight. He presents this time for cystoscopy dilation and possible direct vision internal urethrotomy. Surgeon: Alfie Osman Click Yes if Unassisted: Yes Anesthesia Type: General Operative Notes Findings: Findings: Urethral meatus normal urethra normal to the proximal bulbous urethra where there was a tight stricture that is approximately 8 Yemeni. At the end of the procedure it was at least 20 Yemeni and a 20 [place]i [place] tip catheter was left in place with 14 cc in the balloon. The prostatic fossa was of resected with some minimal nodular regrowth. The bladder exhibited severe trabeculation cellules and Gilda diverticula. Ureteral orifices in normal position with clear efflux. There were no other abnormalities noted within the bladder. Closure Type: not applicable Specimen(s): none sent Applied: catheter (Twenty Yemeni [address] [place] tip catheter left in place) Estimated Blood Loss (mL): 0 Procedure in detail: Procedure in detail: After informed consent was obtained, the patient was identified and brought to the operating room. Once in the operating room placed in supine position on the table anesthesia was induced and maintained. Ensuring an adequate level of anesthesia the patient was transitioned to the lithotomy position where he was prepped, draped, prepared for Transurethral procedure. After prepping, draping, time-out and ensuring an adequate level of anesthesia 22 Yemeni cystoscope was passed at the level of the stricture. A extra stiff Amplatz guidewire was then passed through the stricture and coiled within the bladder the scope was then backed out and the cook ?S? dilators were employed dilating from 14-20 Yemeni. The scope cystoscope was then passed along the wire and into the bladder. Cystoscopy was then performed. The scope was then backed out and the Councill tip catheter easily passed over the wire into the bladder with the balloon was filled with 15 cc of sterile water and placed to gravity drainage. At this point the patient was awakened having tolerated the procedure well there were no complications and he was transferred to the postanesthesia care unit for recovery to be discharged home with his Lozano catheter. Complications: none Post-operative Condition: stable Disposition: PACU Plan for aftercare: Patient to be discharged home with his Lozano catheter.
== END 2022-08-18 14:19 | disposition home or self-care (01) ==
PROVIDERS: Family Provider Family Medicine; PCP Internal Medicine; Referring Provider Urology; Visit Provider Urology
PROC: (CPT 52281; principal; 2022-08-18 12:15)
DX: N35.912 Unspecified bulbous urethral stricture, male (principal); N32.3 Diverticulum of bladder
CPT/HCPCS: 52281; 82962; J0690; J2704; J3010

== ENCOUNTER → 2022-09-07 15:43 | Outpatient (CLI) | payer MEDICARE, OTHER, SELFPAY ==
[2019-07-03 17:27] VITALS: BMI 30.7
--- NOTE | 2022-09-07 | DI.ECHO.S_ITS ---
[facility] +---------+ : : [address] : : : : [id number] : : : : Phone: [phone]+ Echocardiogram Report + + :Name: JOAO TRINIDAD Study Date: 09/07/2022 Height: 70 in : :[facility] ReadingLocation: Weight: 210 lb : : Gender: Male BSA: 2.1 m2 : :: 1940 Age: 82 yrs BP: 141/87 mmHg: :Reason For Study: DYSPNEA ON EXERTION HR: 65 : :Ordering Physician: MAGALIE, : :LWE Performed By: VIANNEY ESPINOZA : :Referring: LEW MONTEMAYOR : + + Interpretation Summary 1) Normal left ventricular thickness, size, wall motion, and systolic function (EF 60-65%). 2) Normal right ventricular size and function. 3) No significant valvular abnormalities. 4) The right ventricular systolic pressure is estimated to be at least 26 mmHg based on an estimated right atrial pressure of 3 mm Hg. 5) Compared to the Echo done 09/05/2014, no significant change. Procedure: A two-dimensional transthoracic echocardiogram with color flow and Doppler was performed. The study quality was technically difficult. Comparison is made with the echocardiogram of 09/05/2014. The patient was in normal sinus rhythm during the exam. Left Ventricle: The left ventricle is normal in size and wall thickness. Left ventricular systolic function is normal. The ejection fraction is estimated to be 60-65%. Left ventricular wall motion is normal. Diastolic parameters suggest a relaxation abnormality of the left ventricle, consistent with probable normal filling pressures. Right Ventricle: The right ventricle is normal in size and function. Atria: The left atrial size is normal. Right atrial size is normal. There is no Doppler evidence for an interatrial shunt. Mitral Valve: The mitral valve is normal in structure and function. There is trace mitral regurgitation. Aortic Valve: The aortic valve is trileaflet. The aortic valve opens well. The aortic valve is slightly calcified. There is no aortic valve stenosis. No aortic regurgitation is present. Tricuspid Valve: The tricuspid valve is not well visualized. There is mild tricuspid regurgitation. The right ventricular systolic pressure is estimated to be at least 26 mmHg based on an estimated right atrial pressure of 3 mm Hg. Pulmonic Valve: The pulmonic valve is normal in structure and function. There is mild pulmonic regurgitation. Great Vessels: The aortic root is borderline dilated. The ascending aorta could not be visualized. The IVC is of normal diameter and collapses greater than 50% with a sniff. This suggests a low right atrial pressure of 3 mm Hg. Pericardium/ Pleura There is no pericardial effusion. There is no pleural effusion. MMode/2D Measurements & Calculations LVIDd: 4.8 cm LVOT diam: 1.9 cm LVIDs: 3.4 cm Ao root diam: 4.1 cm FS: 29.2 % IVSd: 1.1 cm LVPWd: 1.0 cm LV bolanos. diameter/BSA (cm/m^2): 2.3 LV sys. diameter/BSA (cm/m^2): 1.6 LA A2 area: 26.4 cm2 RA long axis: 5.1 cm LA A4 area: 15.9 cm2 LA length (vol): 6.6 cm LA vol: 54.2 ml LA vol index: 25.4 ml/m2 LVLs ap4: 7.1 cm LVLd ap2: 9.2 cm LVLs ap2: 6.6 cm TAPSE_phl: 2.5 cm Doppler Measurements & Calculations Ao V2 max: 190.0 cm/sec LVOT Max Marck: 159.0 cm/sec Ao V2 mean: 123.0 cm/sec LV V1 max P.1 mmHg Ao max P.4 mmHg LV V1 VTI: 33.5 cm Ao mean P.0 mmHg EAMON(I,D): 2.4 cm2 Ao V2 VTI: 38.9 cm EAMON(V,D): 2.4 cm2 sev ratio: 0.86 EAMON indexed to BSA (cm^2/m^2): 1.1 MV E max marck: 81.2 cm/sec TR max marck: 240.0 cm/sec MV A max marck: 107.0 cm/sec TR max P.0 mmHg MV E/A: 0.76 PA V2 max: 148.0 cm/sec Med Peak E' Marck: 8.0 cm/sec PA V2 mean: 111.0 cm/sec E/E' med: 10.1 PA mean P.0 mmHg Lat Peak E' Marck: 11.2 cm/sec PA pr(Accel): 33.1 mmHg E/E' lat: 7.3 E/e' average: 8.7 MV dec time: 0.34 sec SV(LVOT): 95.0 ml AV VR_phl: 0.84 EAMON(VTI)/BSA_phl: 1.1 MV P1/2t-pr_phl: 99.0 msec Reading Physician:02:17 PM
== END ==
PROVIDERS: Family Provider Family Medicine; PCP Nurse Practitioner Family; Referring Provider Internal Medicine Cardiovascular Disease; Visit Provider Internal Medicine Cardiovascular Disease
DX: I07.1 Rheumatic tricuspid insufficiency (principal); I37.1 Nonrheumatic pulmonary valve insufficiency; R06.09 Other forms of dyspnea
CPT/HCPCS: 93306

== ENCOUNTER → 2023-01-07 18:09 | Outpatient (CLI) | payer MEDICARE, OTHER, SELFPAY ==
[2023-01-06 12:12] VITALS: BMI 30.7
--- NOTE | 2023-01-07 | DI.MRI.S_ITS ---
PROCEDURE: MR CERVICAL SPINE WO CON INDICATIONS: cervical spinal stenosis TECHNIQUE: Noncontrast sagittal T1 spin echo and T2 fast spin echo, sagittal STIR, foraminal oblique sagittal T2 fast spin echo, and axial gradient echo or T2 fast spin echo through the cervical spine. COMPARISON: None. FINDINGS: Image quality: Excellent. Alignment and Curvature: Straightening the normal cervical lordosis. Grade 1 anterolisthesis of C7 on T1. Bone Marrow: Multilevel degenerative endplate changes. Partial ankylosis of the C4 and C5 vertebral bodies and right facet joints. Large anterior osteophytes. Spinal Cord: Mild cord signal abnormality at C3-C4.. No cerebellar tonsillar herniation. Paraspinous Soft Tissues: No paravertebral masses. Prevertebral soft tissues are normal in thickness. Tortuosity of the right vertebral artery at the C4 level. C2-C3: Severe disc desiccation and height loss. Small posterior disc bulge with a superimposed central disc protrusion resulting in mild central canal stenosis. There is facet and uncovertebral arthropathy resulting in severe left and moderate right neural foraminal stenosis. C3-C4: Severe disc desiccation and height loss. Right paracentral disc osteophyte complex resulting in moderate central canal stenosis with deformity of the ventral cord and mild cord signal abnormality. Facet and uncovertebral arthropathy resulting in severe right and moderate to severe left neural foraminal stenosis. C4-C5: Severe disc desiccation and height loss. Posterior disc osteophyte complex resulting in mild central canal stenosis. Facet and uncovertebral arthropathy resulting in moderate right and mild left neural foraminal stenosis. C5-C6: P Severe disc desiccation and height loss. osterior disc osteophyte complex resulting in mild central canal stenosis. Facet and uncovertebral arthropathy resulting in severe bilateral neural foraminal stenosis. C6-C7: Severe disc desiccation and height loss. Posterior disc osteophyte complex resulting in mild central canal stenosis. Facet and uncovertebral arthropathy resulting in moderate bilateral neural foraminal stenosis. C7-T1: Disc desiccation and small posterior disc bulge without significant central canal stenosis. No neural foraminal stenosis. IMPRESSION: 1. Multilevel severe degenerative disc disease. 2. At C3-C4, there is a large right paracentral posterior disc osteophyte complex deforming the ventral cord resulting in mild cord signal abnormality. There is moderate central canal stenosis. 3. Multilevel severe neural foraminal stenosis including on the left at C2-C3 right at C3-C4 and bilateral at C5-C6. Dictated by: Alonso Long M.D. on 01/08/2023 at 9:27 Approved by: Alonso Long M.D. on 01/08/2023 at 9:36
== END ==
PROVIDERS: Family Provider Family Medicine; PCP Nurse Practitioner Family; Referring Provider Orthopaedic Surgery Orthopaedic Surgery of the Spine; Visit Provider Orthopaedic Surgery Orthopaedic Surgery of the Spine
DX: M48.02 Spinal stenosis, cervical region (principal); M50.31 Other cervical disc degeneration, high cervical region
CPT/HCPCS: 72141

== ENCOUNTER → 2023-04-02 08:32 | Outpatient (CLI) | payer MEDICARE, OTHER, SELFPAY ==
[2023-01-06 12:12] VITALS: BMI 30.7
--- NOTE | 2023-04-02 08:34 | DI.RAD.S_ITS ---
PROCEDURE: XR LUMBAR SPINE MIN 4V INDICATIONS: BACK PAIN TECHNIQUE: 5 views of the lumbar spine were acquired, including bilateral oblique views. COMPARISON: [facility] [place], CR, XR LUMBAR SPINE 2 OR 3 VIEWS, 05/02/2020, 11:09. [facility], CR, XR LUMBAR SPINE 2-3V, 07/03/2019, 15:21. FINDINGS: Bones: 5 nonrib-bearing vertebrae are present. Significantly decreased osseous mineralization. Postsurgical changes from and L5-S1 posterior spinal fusion and discectomy. Straightening of normal lumbar lordosis. Mild retrolisthesis of L3 on L4. Multilevel degenerative changes with severe disc height loss at multiple levels with degenerative endplate changes and osteophytosis. Facet arthropathy is present. There is normal bony alignment. No vertebral body compression fractures. No suspicious bony lesions. Soft tissues: Overlying bowel gas pattern is normal. No suspicious soft tissue calcifications. Atherosclerotic vascular calcifications. Oblique images: No definite pars defects. IMPRESSION: Severe degenerative changes of the lumbar spine status post L5-S1 posterior spinal fixation and discectomy. No acute compression deformities. Dictated by: Alonso Long M.D. on 04/02/2023 at 9:25 Approved by: Alonso Long M.D. on 04/02/2023 at 9:27
== END ==
PROVIDERS: Family Provider Family Medicine; Referring Provider Physical Medicine & Rehabilitation; Visit Provider Physical Medicine & Rehabilitation
DX: M54.9 Dorsalgia, unspecified (principal); M53.3 Sacrococcygeal disorders, not elsewhere classified; M47.22 Other spondylosis with radiculopathy, cervical region; Z98.1 Arthrodesis status
CPT/HCPCS: 72110; 99214

== ENCOUNTER 2023-04-06 12:35 | Outpatient (CLI) | payer MEDICARE, OTHER, SELFPAY ==
[2023-01-06 12:12] VITALS: BMI 30.7
[2023-04-06] VITALS (8 sets, daily range): BP systolic 126–179; BP diastolic 52–80; PULSE 68–89; RESP 14–18; TEMP 36.2; O2SAT 98–100
--- NOTE | 2023-04-06 12:38 | DI.RAD.S_ITS ---
PROCEDURE: PAIN SI JOINT INJECTION PASTORA INDICATIONS: SACROILIAC DISORDER COMPARISON: None. FINDINGS: Fluoroscopic spot filming was performed to verify placement of spinal needles at the bilateral sacroiliac joints, as labeled on the films. Appropriate locations of the needle tips were confirmed by injection of iodinated contrast. IMPRESSION: Intraprocedural examination demonstrates appropriate needle position. Approved by: Dario Stratton M.D. on 04/06/2023 at 16:41
[2023-04-06] MEDS: MIDAZOLAM 2 MG/2 ML VIAL IV (13:52)
[2023-04-06] MEDS: BUPIVACAINE 0.5% (PF) 10 ML VIAL 5 ML INJ (13:54)
[2023-04-06] MEDS: BETAMETHASONE 30 MG/5 ML MDV 12 MG INJ (13:55)
[2023-04-06] MEDS: iopamidoL 15 ML VIAL 3 ML INJ (13:55)
--- NOTE | 2023-04-06 14:07 | PM.PROC.IR.1 ---
Date/Time/Diagnoses Date of procedure: 04/06/23 Time of procedure: 14:07 Pre-procedure diagnosis: Sacroiliac joint pain/DJD Post-procedure diagnosis: same Procedure Notes Procedure: Fluoroscopic guided contrast controlled bilateral sacroiliac joint injection Indications: Ole is referred by Dr. Chacon for treatment of bilateral sacroiliac joint DJD Physician: Junior Coronel Total Fluoroscopy time (seconds): 18 Total sedation minutes: 10 Complications: none Procedure in detail & Post-procedure care: Description of procedure Fluoroscopic guided, contrast controlled bilateral sacroiliac joint injection Following review of allergies and review of potential side effects and complications, including, but not necessarily limited to, infection, allergic reaction, local tissue breakdown, temporary as well as permanent nerve injury, paralysis, stroke and possible , the patient indicated that they understood and agreed to proceed. An informed consent was signed by the patient, witnessed by a nurse, and placed in the patient's chart. Additionally, other treatment options including modalities, medications, and physical therapy were reviewed with the patient. After review of previous anaesthesic history and IV conscious sedation the patient was deemed safe to proceed with today?s procedure with IV conscious sedation as ASA class II designation. Safety time-out was performed to confirm patient ID, procedure to be performed and site of procedure. IV sedation was accomplished with a combination of 2mg Versed were administered by the RN after DO order, titrated to patient comfort during the course of the procedure while the patient remained responsive to all verbal commands In the prone position following sterile prep and drape of the pelvic region, the hyper lucency on in the inferior aspect of the sacroiliac joint was identified fluoroscopically the skin was anesthetized be a 25 gauge 1.5 inch needle with approximately 2cc of 1% lidocaine solution. At this point, a 22 gauge 3 in spinal needle was atraumatically introduced and advanced under fluoroscopic guidance into the inferior aspect of the right sacroiliac joint. Following negative aspiration, approximately 0.3cc of Isovue-300 was injected confirming intra-articular placement without vascular uptake. Radiographic data, including multiple fluoroscopic views of the pelvis, reveals a spinal needle in the sacroiliac joint hyper lucent zone. Subsequent view show flow contrast tear superiorly and inferiorly within the joint capsule without vascular intrathecal uptake. At this point a total of 1cc of 0.5% Marcaine was combined with 1cc of 6mg of betamethasone was injected without incident. Attention was then refocused the left sacroiliac joint where the procedure was replicated. The procedure tolerated the procedure well without signs or symptoms of complications prior to transfer to the recovery area continued monitoring without incident. The patient was then transferred to the recovery area with a bur observed for an appropriate time after the injection. The patient reverted a vas score of 7 prior to the procedure and post-procedure vas of 1. Postop instructions The patient was provided with a pain like to continue to record the patient's response to the target specific procedure prior to the patient's follow-up visit with the referring physician. Additionally, specific post injection care instructions and a contact number to our office were provided if concerns arise regarding the possible complications associated with procedure are suspected.
== END 2023-04-06 14:35 | disposition home or self-care (01) ==
LOC: RAD 12:36
PROVIDERS: Family Provider Family Medicine; Referring Provider Physical Medicine & Rehabilitation; Visit Provider Physical Medicine & Rehabilitation
DX: M53.3 Sacrococcygeal disorders, not elsewhere classified (principal); Z98.1 Arthrodesis status
CPT/HCPCS: 27096; 77002; 99152; J0702; J2250

== ENCOUNTER → 2023-07-08 13:17 | Outpatient (CLI) | payer MEDICARE, OTHER, SELFPAY ==
[2023-01-06 12:12] VITALS: BMI 30.7
--- NOTE | 2023-07-08 13:18 | DI.RAD.S_ITS ---
PROCEDURE: XR CERVICAL SPINE 4V OR 5V INDICATIONS: Cervical spondylosis TECHNIQUE: 5 views of the cervical spine acquired. COMPARISON: [facility] [place], CR, XR CERVICAL SPINE 2 OR 3 VIEWS, 01/07/2023, 9:57. [facility] [place], CR, XR CERVICAL SPINE 2 OR 3 VIEWS, 10/16/2021, 10:14. MR, MR CERVICAL SPINE WO CON, 01/07/2023, 18:24. FINDINGS: Bones: No fractures or dislocations to the C7 level. Diffuse severe degenerative disc disease in cervical spine at C2-C3, C3-C4, C4-C5, C5-C6 and C6-C7. Severe bilateral facet arthropathy at multiple levels, most pronounced at C2-C3 and C5-C6 on the left, and C3-C4, C4-C5 and C5-C6 on the right. There is osteopenia. Oblique images demonstrate multilevel bony foraminal stenoses, severe at C3-C4 on the right and C2-C3 on the left, moderate at C4-C5, C5-C6 and C6-C7 on the right and C5-C6 and C6-C7 on the left. Soft tissues: No prevertebral soft tissue swelling. IMPRESSION: 1. Severe degenerative disc and facet disease in cervical spine. 2. Multilevel foraminal stenoses as described. 3. Osteopenia. Dictated by: Della Robles M.D. on 07/08/2023 at 15:33 Approved by: Della Robles M.D. on 07/08/2023 at 15:43
== END ==
PROVIDERS: Family Provider Family Medicine; PCP Family Medicine; Referring Provider Physical Medicine & Rehabilitation; Visit Provider Physical Medicine & Rehabilitation
DX: M47.812 Spondylosis without myelopathy or radiculopathy, cervical region (principal); M50.31 Other cervical disc degeneration, high cervical region; M48.02 Spinal stenosis, cervical region; M85.88 Other specified disorders of bone density and structure, other site
CPT/HCPCS: 72050

== ENCOUNTER 2023-08-03 09:05 | Outpatient (CLI) | payer MEDICARE, OTHER, SELFPAY ==
[2023-01-06 12:12] VITALS: BMI 30.7
[2023-08-03] VITALS (9 sets, daily range): BP systolic 106–153; BP diastolic 56–71; PULSE 63–85; RESP 9–18; TEMP 36.2; O2SAT 95–98
--- NOTE | 2023-08-03 | DI.RAD.S_ITS ---
PROCEDURE: PAIN C/T INTERLAMINAR INJECT INDICATIONS: CERVICAL STENOSIS COMPARISON: None. FINDINGS: Fluoroscopic spot filming was performed to verify placement of spinal needles overlying the C6-7 level(s), as labeled on the films. Appropriate location(s) of the needle tip(s) was confirmed by injection of iodinated contrast. IMPRESSION: C6-7 needle and contrast localization. Dictated by: Grace Hedrick M.D. on 08/03/2023 at 14:43 Approved by: Grace Hedrick M.D. on 08/03/2023 at 14:45
[2023-08-03] MEDS: MIDAZOLAM 2 MG/2 ML VIAL IV (09:53)
[2023-08-03] MEDS: DEXAMETHASONE 10 MG/ML VIAL 20 MG INJ (09:58)
[2023-08-03] MEDS: BUPIVACAINE 0.25% (PF) VIAL 2 ML INJ (09:59)
[2023-08-03] MEDS: iopamidoL 15 ML VIAL 3 ML INJ (10:00)
--- NOTE | 2023-08-03 10:18 | P.PCN_ITS ---
Date/Time/Diagnoses Date of procedure: 08/03/23 Time of procedure: 10:18 Pre-procedure diagnosis: 1. CERVICAL STENOSIS, 2. CERVICAL HNP WITH UPPER EXTREMITY RADICULAR FEATURES Post-procedure diagnosis: same Procedure Notes Procedure: 1. FLUORSCOPICALLY GUIDED CONTRAST CONTROLLED INTERLAMINAR EPIDURAL STEROID INJECTION - C6/7 TL ESTEPHANIE Indications: Ole is referred by Dr. English for treatment of Cervical HNP with Upper Extremity Paresthesias. Physician: Junior Coronel Total Fluoroscopy time (seconds): 37 Total sedation minutes: 17 Complications: none Procedure in detail & Post-procedure care: FINDINGS Cervical Stenosis due to disc deterioration and nerve root irritation and nerve root irritation DESCRIPTION OF PROCEDURE Fluoroscopically guided, contrast-controlled C6/7 translaminar epidural steroid injection with conscious sedation. Following review of allergy and review of potential side effects and complications, including, but not necessarily limited to, infection, allergic reaction, local tissue breakdown, temporary as well as permanent nerve injury, stroke, paralysis, and possible , the patient indicated that patient understood and agreed to proceed. An informed consent document was signed by the patient, witnessed by a nurse, and placed in the patient's chart. Additionally, other treatment options including modalities, medications, and physical therapy were reviewed with the patient. After review of previous anaesthesic history and IV conscious sedation the patient was deemed safe to proceed with today?s procedure with IV conscious sedation as ASA class II designation. Safety time-out was performed to confirm patient ID, procedure to be performed and site of procedure. IV sedation was accomplished with a combination of 2mg of Versed administered by the RN after DO order, titrated to patient comfort during the course of the procedure while the patient remained responsive to all verbal commands. In the prone position, following sterile prep and drape of the cervical region, the C6/7 translaminar space was identified fluoroscopically. The skin was anesthetized via a 25-gauge 1.5-inch needle with 1% lidocaine solution. At this point, a 25-gauge, 2.5-inch short bevel spinal needle was atraumatically introduced and advanced under fluoroscopic guidance into epidural space at the C6/7 translaminar space. Depth was confirmed on lateral view. Radiological data, including multiple fluoroscopic views of the cervical spine, reveal a spinal needle at the C6/7 translaminar space. Lateral views then show placement of the needle in the epidural space. Subsequent views show contrast material flowing superiorly and inferiorly in the epidural space. DSA fluoroscopy with live contrast injection, once again, confirmed no vascular or intrathecal uptake. At this point, using loss of resistance technique with saline and air, the epidural space was entered. Following negative aspiration, injection of approximately 1.5 cc of Isovue-200 with live fluoroscopy in the AP view confirmed epidural flow in the epidural space without vascular or intrathecal uptake observed. Subsequently, a test dose of 1 cc of 1% lidocaine solution was injected and patient was observed for two minutes without signs or symptoms of complications, including abdominal pain, shortness of breath, bilateral upper or lower extremity weakness, nausea and vomiting, prior to steroid injection. At this point, 2cc or 20mg of dexamethasone was then injected without incident. The patient tolerated the procedure well without signs or symptoms of complic ations prior to being transferred to the recovery area for further monitoring, The patient was then transferred to the recovery area where they were observed for an appropriate period of time after the injection. The patient reported a VAS score of 8 prior to the procedure and a post-procedure VAS of 1. POST OP INSTRUCTIONS The patient was provided a Pain Log to continue to record their response to the target-specific procedure prior to follow-up visit with the referring provider. Additionally, specific post-injection care instructions and a contact number to our office were provided if concerns arise regarding possible complications associated with the procedure are suspected.
--- NOTE | 2023-08-05 14:08 | PC.NURSE ---
Patient called by this nurse to check in to see how he was doing since his cervical injection on 08/03/23. No answer. This nurse left a message reminding him to call the clinic's phone number that is on the green discharge sheet if he has any questions or concerns.
== END 2023-08-03 10:32 | disposition home or self-care (01) ==
LOC: RAD 09:06
PROVIDERS: Family Provider Family Medicine; PCP Family Medicine; Referring Provider Physical Medicine & Rehabilitation; Visit Provider Physical Medicine & Rehabilitation
DX: M50.123 Cervical disc disorder at C6-C7 level with radiculopathy (principal); M48.02 Spinal stenosis, cervical region
CPT/HCPCS: 62321; 99152; J1100; J2250; J3490

== ENCOUNTER 2023-08-24 14:17 | Outpatient (CLI) | payer MEDICARE, OTHER, SELFPAY ==
[2023-01-06 12:12] VITALS: BMI 30.7
[2023-08-24] VITALS (8 sets, daily range): BP systolic 130–168; BP diastolic 56–77; PULSE 68–78; RESP 12–18; TEMP 36.9; O2SAT 97–100
--- NOTE | 2023-08-24 | DI.RAD.S_ITS ---
PROCEDURE: PAIN L/S FACET INJ/BLK 1ST PASTORA INDICATIONS: LUMBAR FACET ARTHROPATHY COMPARISON: None. FINDINGS: Fluoroscopic spot filming was performed to verify placement of spinal needles at the bilateral L3, L4, L5 level(s), as labeled on the films. Appropriate location(s) of the needle tip(s) was confirmed by injection of iodinated contrast. IMPRESSION: Intraoperative guidance provided. Dictated by: Abdirizak Alvarado M.D. on 08/24/2023 at 17:50 Approved by: Abdirizak Alvarado M.D. on 08/24/2023 at 17:51
[2023-08-24] MEDS: MIDAZOLAM 2 MG/2 ML VIAL IV (15:37)
[2023-08-24] MEDS: iopamidoL 15 ML VIAL 3 ML INJ (15:41)
[2023-08-24] MEDS: LIDOCAINE 1% 20 ML 5 ML INJ (15:42)
[2023-08-24] MEDS: BUPIVACAINE 0.5% (PF) 10 ML VIAL 5 ML INJ (15:42)
--- NOTE | 2023-08-24 15:57 | P.PCN_ITS ---
Date/Time/Diagnoses Date of procedure: 08/24/23 Time of procedure: 15:57 Pre-procedure diagnosis: FACET ARTHROPATHY Post-procedure diagnosis: same Procedure Notes Procedure: 1. BILATERAL L3, L4 AND L5 DIAGNOSTIC MB BLOCKS Indications: Ole is referred by Dr. English for treatment of Bilateral Axial LBP. Physician: Junior Coronel Total Fluoroscopy time (seconds): 16 Total sedation minutes: 17 Complications: none Procedure in detail & Post-procedure care: DESCRIPTION OF PROCEDURE Fluoroscopically guided, contrast-controlled bilateral L3, L4 AND L5 medial branch blocks with 0.5cc of 0.5% Marcaine. Following review of allergy and review of potential side effects and complications, including, but not necessarily limited to, infection, allergic reaction, local tissue breakdown, nerve injury, paralysis, stroke and possible , the patient indicated that the patient understood and agreed to proceed. An informed consent document was signed by the patient, witnessed by a nurse, and placed in the patient's chart. After review of previous anaesthesic history and IV conscious sedation the patient was deemed safe to proceed with today's procedure with IV conscious sedation as ASA class II designation. Safety time-out was performed to confirm patient ID, procedure to be performed and site of procedure. IV sedation was accomplished with a combination of 2mg of Versed was administered by the RN a fter DO order, titrated to patient comfort during the course of the procedure while the patient remained responsive to all verbal commands In the prone position, following sterile prep and drape of the lumbar region, the right L3, L4 AND L5 anatomical location of the medial branch of the dorsal ramus was identified fluoroscopically. Subsequently an anesthetic skin wheal using 1% lidocaine solution was initiated at each of the anatomical spots. Subsequently then a 22-gauge 3.5-inch spinal needle was atraumatically introduced and advanced under fluoroscopic guidance at each of the corresponding sites at the right L3, L4 and L5 MB. After negative aspiration, 0.2cc of Isovue 200 was injected, confirming placement without vascular or intrathecal uptake. Subsequently then 0.5cc of 0.5% Marcaine solution was injected at each of the corresponding sites at the right L3, L4 and L5 medial branch locations. The identical procedure was replicated on the left. The patient tolerated the procedure well without signs or symptoms of complications. The patient tolerated the procedure well without signs or symptoms of complications prior to transfer to the recovery area continued monitoring w [facility] incident. Post-procedure, the patient was monitored initiating provocative activities to measure the amount of relief from block of the facetogenic pain. The patient reported a VAS of 7 prior to the procedure and a post-procedure VAS of 1. It has been a pleasure to assist in the diagnostic and therapeutic care of your patient. POST OP INSTRUCTIONS The patient was provided with a Pain Log to complete over the next several hours and subsequent days prior to the patient's follow up with the ordering physician. If the patient has linotyper relief to the solution applied, then they may be a candidate for medial branch rhizotomy. The patient is aware, was provided, once again, with a Pain Log and will follow up with the referring physician for review and clinical correlation
== END 2023-08-24 16:11 | disposition home or self-care (01) ==
LOC: RAD 14:18
PROVIDERS: Family Provider Family Medicine; PCP Family Medicine; Referring Provider Physical Medicine & Rehabilitation; Visit Provider Physical Medicine & Rehabilitation
DX: M47.816 Spondylosis without myelopathy or radiculopathy, lumbar region (principal)
CPT/HCPCS: 64493; 64494; 99152; J2250

== ENCOUNTER 2023-11-02 09:43 | Outpatient (CLI) | payer MEDICARE, OTHER, SELFPAY ==
[2023-01-06 12:12] VITALS: BMI 30.7
[2023-11-02] VITALS (8 sets, daily range): BP systolic 128–171; BP diastolic 56–79; PULSE 56–67; RESP 10–18; TEMP 35.7; O2SAT 95–100
--- NOTE | 2023-11-02 10:45 | DI.RAD.S_ITS ---
PROCEDURE: PAIN L/S FACET INJ/BLK 1ST PASTORA INDICATIONS: Bilateral L3-L4 and L5 medial branch block SA COMPARISON: [facility], XA, PAIN L/S FACET INJ/BLK 1ST PASTORA, 08/24/2023, 16:40. FINDINGS: Fluoroscopic spot filming was performed to verify placement of spinal needles at the L3-L5 level(s), as labeled on the films. Appropriate location(s) of the needle tip(s) was confirmed by injection of iodinated contrast. Partially seen lumbosacral fusion hardware. IMPRESSION: Image guidance for L3-L5 injections. Partially seen fusion hardware. Dictated by: Bernardo Pena M.D. on 11/02/2023 at 14:28 Approved by: Bernardo Pena M.D. on 11/02/2023 at 14:29
[2023-11-02] MEDS: MIDAZOLAM 2 MG/2 ML VIAL IV (11:18)
[2023-11-02] MEDS: LIDOCAINE 2% INJ SDV 5ML 10 ML INJ (11:22)
[2023-11-02] MEDS: LIDOCAINE 1% 20 ML 5 ML INJ (11:22)
[2023-11-02] MEDS: iopamidoL 15 ML VIAL 3 ML INJ (11:22)
--- NOTE | 2023-11-02 11:39 | PM.PROC.IR.1 ---
Date/Time/Diagnoses Date of procedure: 11/02/23 Time of procedure: 11:39 Pre-procedure diagnosis: 1. FACET ARTHROPATHY Post-procedure diagnosis: same Procedure Notes Procedure: 1. BILATERAL L3, L4 AND L5 DIAGNOSTIC MB BLOCKS Indications: Ole is referred by Dr. English for treatment of Bilateral Axial LBP. Physician: Junior Coronel Total Fluoroscopy time (seconds): 13 Total sedation minutes: 13 Complications: none Procedure in detail & Post-procedure care: DESCRIPTION OF PROCEDURE Fluoroscopically guided, contrast-controlled bilateral L3, L4 AND L5 medial branch blocks with 0.5cc of 2% Lidocaine. Following review of allergy and review of potential side effects and complications, including, but not necessarily limited to, infection, allergic reaction, local tissue breakdown, nerve injury, paralysis, stroke and possible , the patient indicated that the patient understood and agreed to proceed. An informed consent document was signed by the patient, witnessed by a nurse, and placed in the patient's chart. After review of previous anaesthesic history and IV conscious sedation the patient was deemed safe to proceed with today's procedure with IV conscious sedation as ASA class II designation. Safety time-out was performed to confirm patient ID, procedure to be performed and site of procedure. IV sedation was accomplished with a combination of 2mg of Versed was administered by the RN after DO order, titrated to patient comfort during the course of the procedure while the patient remained responsive to all verbal commands In the prone position, following sterile prep and drape of the lumbar region, the right L3, L4 AND L5 anatomical location of the medial branch of the dorsal ramus was identified fluoroscopically. Subsequently an anesthetic skin wheal using 1% lidocaine solution was initiated at each of the anatomical spots. Subsequently then a 22-gauge 3.5-inch spinal needle was atraumatically introduced and advanced under fluoroscopic guidance at each of the corresponding sites at the right L3, L4 and L5 MB. After negative aspiration, 0.2cc of Isovue 200 was injected, confirming placement without vascular or intrathecal uptake. Subsequently then 0.5cc of 2% Lidocaine solution was injected at each of the corresponding sites at the right L3, L4 and L5 medial branch locations. The identical procedure was replicated on the left. The patient tolerated the procedure well without signs or symptoms of complications. The patient tolerated the procedure well without signs or symptoms of complications prior to transfer to the recovery area continued monitoring without incident. Post-procedure, the patient was monitored initiating provocative activities to measure the amount of relief from block of the facetogenic pain. The patient reported a VAS of 7 prior to the procedure and a post-procedure VAS of 1. It has been a pleasure to assist in the diagnostic and therapeutic care of your patient. POST OP INSTRUCTIONS The patient was provided with a Pain Log to complete over the next several hours and subsequent days prior to the patient's follow up with the ordering physician. 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 The patient is aware, was provided, once again, with a Pain Log and will follow up with the referring physician for review and clinical correlation
== END 2023-11-02 11:48 | disposition home or self-care (01) ==
LOC: RAD 09:44
PROVIDERS: Family Provider Family Medicine; PCP Family Medicine; Referring Provider Physical Medicine & Rehabilitation; Visit Provider Physical Medicine & Rehabilitation
DX: M47.816 Spondylosis without myelopathy or radiculopathy, lumbar region (principal)
CPT/HCPCS: 64493; 64494; 99152; J2250

== ENCOUNTER 2023-12-09 10:31 | Outpatient (CLI) | payer MEDICARE, OTHER, SELFPAY ==
[2023-01-06 12:12] VITALS: BMI 30.7
[2023-12-09] VITALS (10 sets, daily range): BP systolic 129–167; BP diastolic 67–78; PULSE 58–66; RESP 10–20; TEMP 36.3; O2SAT 94–99
--- NOTE | 2023-12-09 11:15 | DI.RAD.S_ITS ---
PROCEDURE: PAIN L/S MED/LAT N RFA BILAT INDICATIONS: Bilateral L3-L4 and L5 medial branch RFA COMPARISON: [facility], XA, PAIN L/S FACET INJ/BLK 1ST PASTORA, 11/02/2023, 11:22. FINDINGS: Fluoroscopic spot filming was performed to verify placement of spinal needles at the bilateral L3, L4, and L5 levels, as labeled on the films. Appropriate locations of the needle tips were confirmed by injection of iodinated contrast. IMPRESSION: Intraprocedural examination demonstrates appropriate needle positioning. Approved by: Dario Stratton M.D. on 12/09/2023 at 21:15
[2023-12-09] MEDS: fentaNYL 100 MCG/2 ML INJ 25 MCG IV (12:20)
[2023-12-09] MEDS: MIDAZOLAM 2 MG/2 ML VIAL 1 MG IV (12:20)
[2023-12-09] MEDS: LIDOCAINE 1% 20 ML 5 ML INJ (12:23)
[2023-12-09] MEDS: BUPIVACAINE 0.5% (PF) 10 ML VIAL 5 ML INJ (12:23)
--- NOTE | 2023-12-09 13:00 | P.PCN_ITS ---
Date/Time/Diagnoses Date of procedure: 12/09/23 Time of procedure: 13:00 Pre-procedure diagnosis: 1. RECALCITRANT FACET ARTHROPATHY Post-procedure diagnosis: same Procedure Notes Procedure: 1. BILATERAL L3, L4 AND L5 MEDIAL BRANCH RADIOFREQUENCY NEUROTOMY Indications: Ole is referred by Dr. English for treatment of facet arthropathy. Physician: Junior Coronel Total Fluoroscopy time (seconds): 13 Total sedation minutes: 34 Complications: none Procedure in detail & Post-procedure care: DESCRIPTION OF PROCEDURE Bilateral L3, L4 and L5 medial branch radiofrequency neurotomy The patient is well known to this clinic having undergone previous facet injections with good but temporary relief. The patient has experienced appropriate, concordant relief with previous facet and median branch blocks but the patient's pain has been recalcitrant to further conservative measures. Therefore, based upon the patient's relief and persistent symptoms, the patient is considered an appropriate candidate for facet rhizotomy. All of the patient's questions regarding the risks versus benefits of the procedure, including, but not limited to, bleeding, infection, temporary as well as lasting nerve injury, paralysis, stroke, and , as well treatment alternatives were answered to satisfaction. After obtaining informed consent, denial of pertinent drug allergies, as well as being made aware of the potential risks of bleeding, infection, spinal cord trauma, paralysis, temporary and permanent nerve damage, seizure, stroke, and possible , the patient was brought to the fluoroscopy suite and positioned prone on the fluoroscopy table. After review of previous anaesthesic history and IV conscious sedation the patient was deemed safe to proceed with today's procedure with IV conscious sedation as ASA class II designation. Safety time-out was performed to confirm patient ID, procedure to be performed and site of procedure. IV sedation was accomplished with a combination of 1mg of Versed and 25mcg of Fentanyl administered by the RN after DO order, titrated to patient comfort during the course of the procedure while the patient remained responsive to all verbal commands. The lumbar region was prepped in usual sterile fashion and covered with a fenestrated drape in the usual sterile fashion. Appropriate monitors applied including pulse oximeter, pulse, and blood pressure for regular monitoring throughout the procedure. After local infiltration using 1% lidocaine, under fluoroscopic guidance, a 10- cm RF insulated needle with a 10-mm active tip was positioned parallel to the junction of the right the superior articulating process where the L5 medial branch resides. Needle placement was confirmed with motor stimulation of .5v on the right which produced local stimulation without radicular component. The stimulation was then increased to 2v with, once again, only local multifidus stimulation without radicular component. The needle was then removed and the identical procedure was performed along the length of the right L4 medial branch with motor stimulation at .7v on the right. The identical procedure was once again performed along the length of the right L3 and medial branch with motor stimulation of .5v on the right. The medial branches were then anesthetised with 0.5% marcaine. This was then followed by two discreet lesions performed at 80 degrees Celsius for 90 seconds each. The identical procedures were repeated on the left. The patient tolerated the procedure well without signs or symptoms of complications prior to transfer to the recovery area continued monitoring without incident. The patient was then transferred to the recovery area where they were observed for an appropriate period of time after the injection. The patient reported a VAS score of 7 prior to the procedure and a post-procedure VAS of 2. POST OP INSTRUCTIONS The patient was provided a Pain Log to continue to record the patient's response to the target-specific procedure prior to the patient's follow-up visit with the referring physician. Additionally, specific post-injection care instructions and a contact number to our office were provided if concerns arise regarding possible complications associated with the procedure are suspected.
== END 2023-12-09 13:08 | disposition home or self-care (01) ==
LOC: RAD 10:32
PROVIDERS: Family Provider Family Medicine; PCP Family Medicine; Referring Provider Physical Medicine & Rehabilitation; Visit Provider Physical Medicine & Rehabilitation
DX: M47.816 Spondylosis without myelopathy or radiculopathy, lumbar region (principal)
CPT/HCPCS: 64635; 64636; 99152; 99153; J2250; J3010

== ENCOUNTER → 2024-02-14 11:51 | Outpatient (CLI) | payer MEDICARE, OTHER, SELFPAY ==
[2023-01-06 12:12] VITALS: BMI 30.7
--- NOTE | 2024-02-14 11:53 | DI.RAD.S_ITS ---
PROCEDURE: XR SACRUM COCCYX MIN 2V INDICATIONS: Sacral pain status post fall TECHNIQUE: 3 views of the sacrum and coccyx acquired. COMPARISON: [facility], CR, XR LUMBAR SPINE MIN 4V, 02/14/2024, 12:19. FINDINGS: Bones: Suspected sacral fracture is not well seen. No dislocations small sclerotic focus at the left pubic bone appears unchanged. L5-S1 pedicle screw fixation. Soft tissues: Visualized bowel gas pattern is normal. No suspicious soft tissue densities. IMPRESSION: No definite acute fracture. However, possible fracture at the sacrum seen on lumbar spine radiographs. Recommend CT bony pelvis for further evaluation. Dictated by: Abdirizak Alvarado M.D. on 02/14/2024 at 16:20 Approved by: Abdirizak Alvarado M.D. on 02/14/2024 at 16:22
--- NOTE | 2024-02-14 11:53 | DI.RAD.S_ITS ---
PROCEDURE: XR LUMBAR SPINE MIN 4V INDICATIONS: Sacral pain status post fall TECHNIQUE: 5 views of the lumbar spine were acquired, including bilateral oblique views. COMPARISON: [facility], CR, XR LUMBAR SPINE MIN 4V, 04/02/2023, 8:42. [facility], CR, XR LUMBAR SPINE 2-3V, 07/03/2019, 15:21. FINDINGS: Bones: L5-S1 pedicle screw fixation. 5 nonrib-bearing vertebrae are present. Scoliosis. L2 compression fracture. Multilevel DDD. Sclerotic focus at the left pubic bone appears unchanged. Moderate bilateral hip DJD. Soft tissues: Overlying bowel gas pattern is normal. No suspicious soft tissue calcifications. Pelvic mesh. Oblique images: No pars defects. IMPRESSION: Subtle angulation at the sacrum which appears new. Concern for sacral fracture. L2 compression fracture which is new in the interval compared to 2022. L5-S1 pedicle screw fixation appears stable. Recommend CT bony pelvis. Dictated by: Abdirizak Alvarado M.D. on 02/14/2024 at 16:14 Approved by: Abdirizak Alvarado M.D. on 02/14/2024 at 16:20
== END ==
PROVIDERS: Family Provider Family Medicine; PCP Family Medicine; Referring Provider Physical Medicine & Rehabilitation; Visit Provider Physical Medicine & Rehabilitation
DX: M53.3 Sacrococcygeal disorders, not elsewhere classified (principal); S32.028A Other fracture of second lumbar vertebra, initial encounter for closed fracture; M51.36 Other intervertebral disc degeneration, lumbar region; M16.0 Bilateral primary osteoarthritis of hip; W19.XXXA Unspecified fall, initial encounter; Z98.1 Arthrodesis status
CPT/HCPCS: 72110; 72220

== ENCOUNTER → 2024-02-17 08:52 | Outpatient (CLI) | payer MEDICARE, OTHER, SELFPAY ==
[2023-01-06 12:12] VITALS: BMI 30.7
--- NOTE | 2024-02-17 08:53 | DI.CT.S_ITS ---
PROCEDURE: CT PEL WO CON INDICATIONS: Follow-up x-ray and possible fracture TECHNIQUE: Noncontrast 3 mm axial sections acquired through the bony pelvis, with coronal and sagittal reformatting. COMPARISON: [facility], CR, XR LUMBAR SPINE 2-3V, 07/03/2019, 15:21. [facility], CR, XR LUMBAR SPINE MIN 4V, 04/02/2023, 8:42. [facility], CR, XR LUMBAR SPINE MIN 4V, 02/14/2024, 12:19. FINDINGS: Image quality: Excellent. Bones: There is a minimally displaced transverse fracture through the mid aspect of the sacrum. No other fractures are identified. There are prior postsurgical changes involving the patient's lumbar spine. There is a small left inguinal hernia present containing omental fat. There is colonic diverticulosis without evidence for diverticulitis. Coronary artery and atherosclerotic vascular calcifications are noted. Left-sided renal cysts are present. There is prior postsurgical change involving the lumbar spine There is a stable small sclerotic lesion involving the inferior acetabular region on the left likely representing a benign bone island. IMPRESSION: 1. Transverse minimally displaced fracture through the mid aspect of the sacrum. 2. No other definite pelvic fractures are identified. 3. Small left inguinal hernia. 4. Colonic diverticulosis without evidence for diverticulitis 5. Atherosclerotic vascular calcifications. 6. Prior postsurgical changes lumbar spine. 7. Left renal cyst. 8. Stable probable benign bone island inferior acetabular region on the left. Dictated by: Deep Chaparro M.D. on 02/17/2024 at 16:02 Approved by: Deep Chaparro M.D. on 02/17/2024 at 16:12
== END ==
PROVIDERS: Family Provider Family Medicine; PCP Family Medicine; Referring Provider Physical Medicine & Rehabilitation; Visit Provider Physical Medicine & Rehabilitation
DX: S32.121A Minimally displaced Zone II fracture of sacrum, initial encounter for closed fracture (principal); K40.90 Unilateral inguinal hernia, without obstruction or gangrene, not specified as recurrent; K57.30 Diverticulosis of large intestine without perforation or abscess without bleeding; I25.10 Atherosclerotic heart disease of native coronary artery without angina pectoris; I70.90 Unspecified atherosclerosis; M53.3 Sacrococcygeal disorders, not elsewhere classified; N28.1 Cyst of kidney, acquired; Z91.81 History of falling
CPT/HCPCS: 72192

== ENCOUNTER 2024-02-20 16:11 | Emergency (ER) | payer MEDICARE, OTHER, SELFPAY ==
[2023-01-06 12:12] VITALS: BMI 30.7
[2024-02-20 16:17] VITALS: BP 174/91; PULSE 88; RESP 18; TEMP 36.6; O2SAT 97; BMI 30.7
--- NOTE | 2024-02-20 20:13 | ED_ITS ---
HPI - Back Pain/Injury General Chief Complaint: Back Pain/Injury Stated Complaint: severe back pain Time Seen by Provider: 02/20/24 19:35 Source: patient History of Present Illness HPI Narrative: 84-year-old male presents requesting assistance with pain control. Patient states that he is being treated by Dr. Coronel of pain management for tailbone pain. He states that he had a CT scan performed, but does not know the results yet. He is taking Tylenol and ibuprofen at home as needed for pain. He states that he was previously taking tramadol, but he has since been taken off of tramadol and he reports that he was not currently taking any narcotics. He sta kalyan that every time he tries to move he has severe pain in his tailbone and pelvis. He has an appointment upcoming with Dr. Coronel in the middle of the week, he is requesting assistance with the pain control until his appointment. He states that he had to relatively recent falls, 1 of which he may have injured his pelvis, but isn't quite sure. Related Data Home Medications Medication Instructions Recorded Confirmed cholecalciferol (vitamin D3) 25 5,000 unit PO DAILY ##0 03/18/16 02/14/24 mcg (1,000 unit) capsule (Vitamin D3) cyanocobalamin (vitamin B-12) 5,000 mcg PO QDAY ##0 03/18/16 02/14/24 1,000 mcg tablet,extended release losartan 100 mg tablet 100 mg PO QDAY ##0 03/18/16 02/14/24 multivitamin (Multiple Vitamins 1 tab PO HS ##0 03/18/16 02/14/24 tablet) vit C 250 mg-vit E 90 mg-zinc 40 1 tab PO BID 06/19/19 02/14/24 mg-copper 1 gl-cuogjs-kurzph capsule (PreserVision AREDS-2) tamsulosin 0.4 mg capsule (Flomax) 0.4 mg PO DAILY 07/20/22 02/14/24 magnesium 200 mg tablet 250 mg PO BID #0 tabs 08/05/22 02/14/24 aspirin 81 mg tablet,delayed 81 mg PO DAILY 08/18/22 02/14/24 release ferrous sulfate 325 mg (65 mg 65 mg PO DAILY 08/18/22 02/14/24 iron) capsule,extended release meloxicam 15 mg tablet 15 mg PO DAILY 12/09/22 02/14/24 tramadol 50 mg tablet 50 mg PO DAILY 12/09/22 02/14/24 hydrochlorothiazide 25 mg tablet 25 mg PO DAILY 04/02/23 02/14/24 omeprazole 20 mg capsule,delayed 20 mg PO BID 04/02/23 02/14/24 release Previous Rx's Medication Instructions Recorded oxycodone-acetaminophen 5 mg-325 1 tab PO Q6H PRN pain #8 tabs 02/20/24 mg tablet Allergies Allergy/AdvReac Type Severity Reaction Status Date / Time No Known Drug Allergies Allergy Verified 02/14/24 11:05 Patient History Medical History History of recent fall Gait instability Facet arthropathy, cervical Cervical spondylosis Facet arthropathy, lumbar Cervical spondylosis with radiculopathy Sacral dysfunction Status post lumbar spinal arthrodesis Urethral stricture Feeling of incomplete bladder emptying Lower urinary tract symptoms Nocturia Easy bruisability Psoriasis BCC (basal cell carcinoma), face Femur fracture, right GERD (gastroesophageal reflux disease) Sleep apnea Hearing impaired Neuropathy Perforated appendicitis (~2015) Iron deficiency anemia BPH (benign prostatic hyperplasia) Diverticulosis Osteoarthritis HTN (hypertension) Surgical History History of lumbar fusion (07/03/19) Hx of transurethral resection of prostate Hx of tonsillectomy Hx of bilateral cataract extraction Hx of laminectomy (~2008) History of colonoscopy (05/20/17) Hx of umbilical hernia repair Family History Mother Diabetes mellitus Father Renal failure Social History marital status: number of children: 2 household members: none Smoking Status: Former smoker alcohol intake: current caffeine: Yes Smoking Status: Former smoker alcohol intake frequency: 0-2 drinks per day Substance Use Type: does not use Exam Initial Vital Signs Initial Vital Signs: Vital Signs Temperature 97.8 F 02/20/24 16:17 Pulse Rate 88 02/20/24 16:17 Respiratory Rate 18 02/20/24 16:17 Blood Pressure 174/91 H 09/01/24 16:17 Pulse Oximetry 97 02/20/24 16:17 Oxygen Delivery Method Room Air 02/20/24 16:17 Const: Awake, alert, no acute distress, frail MSK: Atraumatic, no step-offs, generalized tenderness over lower sacral region Skin: Warm, Dry, intact, no rashes Neuro: AO x3, CN II-XII grossly intact, moves all extremities, ambulatory with a walker Course Orders Ordered: Discontinued Medications Oxycodone/Acetaminophen (Oxycodone/Apap 5/325 Prepack) 1 bottle MISC DIRECTED ONE Stop: 02/20/24 20:16 Last Admin: 02/20/24 20:23 Dose: 1 bottle Documented By: SHANIA Vital Signs Vital signs: Vital Signs - 8 hr 02/20/24 16:17 Temperature 97.8 F Pulse Rate 88 Respiratory Rate 18 Blood Pressure 174/91 H Pulse Oximetry 97 Oxygen Delivery Method Room Air MDM - Back Pain/Injury Imaging Data CT scan - abdomen/pelvis: My Impression: Ordered by outside physician Radiologist's Impression: PROCEDURE: CT PEL WO CON INDICATIONS: Follow-up x-ray and possible fracture TECHNIQUE: Noncontrast 3 mm axial sections acquired through the bony pelvis, with coronal and sagittal reformatting. COMPARISON: [facility], CR, XR LUMBAR SPINE 2-3V, 07/03/2019, 15:21. [facility], CR, XR LUMBAR SPINE MIN 4V, 04/02/2023, 8:42. [facility], CR, XR LUMBAR SPINE MIN 4V, 02/14/2024, 12:19. FINDINGS: Image quality: Excellent. Bones: There is a minimally displaced transverse fracture through the mid aspect of the sacrum. No other fractures are identified. There are prior postsurgical changes involving the patient's lumbar spine. There is a small left inguinal hernia present containing omental fat. There is colonic diverticulosis without evidence for diverticulitis. Coronary artery and atherosclerotic vascular calcifications are noted. Left-sided renal cysts are present. There is prior postsurgical change involving the lumbar spine There is a stable small sclerotic lesion involving the inferior acetabular region on the left likely representing a benign bone island. IMPRESSION: 1. Transverse minimally displaced fracture through the mid aspect of the sacrum. 2. No other definite pelvic fractures are identified. 3. Small left inguinal hernia. 4. Colonic diverticulosis without evidence for diverticulitis 5. Atherosclerotic vascular calcifications. 6. Prior postsurgical changes lumbar spine. 7. Left renal cyst. 8. Stable probable benign bone island inferior acetabular region on the left. Dictated by: Deep Chaparro M.D. on 02/17/2024 at 16:02 Approved by: Deep Chaparro M.D. on 02/17/2024 at 16:12 MDM Narrative Medical decision making narrative: Patient presenting for sacral pain and requesting help with pain control. CT imaging shows transverse minimally displaced sacral fracture. Patient was able to ambulate with a walker, which he states this is baseline. Discussed case with on-call surgeon Dr. Lee, who stated that these are usually managed conservatively, but no emergent intervention from Orthopedic surgery is required at this time. Patient states that he was not want to go back to tramadol and requesting a different agent to help with the pain. Pain medication sent to pharmacy of choice. Patient was strongly advised that these medications may put him at increased risk of falling and risking worsening injuries. Discharge Plan Departure Patient Disposition: Home Clinical Impression: Closed sacral fracture Instructions: Sacral Stress Fracture Activity Restrictions/Additional Instructions: Your CT showed that you have a transverse fracture through your sacrum. Pain medications has been sent to the [facility] pharmacy. This medication can cause drowsiness and put you at increased risk of falling, see do not take this medication with alcohol or before driving. This medication can also cause constipation. I recommended daily stool softener while taking this medication. Continue to take your other medications as prescribed. Prescriptions: New oxycodone-acetaminophen 5-325 mg tablet 1 tab PO Q6H PRN (Reason: pain) Qty: 8 0RF No Action losartan 100 MG tablet 100 mg PO QDAY Qty: 0 multivitamin [Multiple Vitamins] 1 EACH tablet 1 tab PO HS Qty: 0 cholecalciferol (vitamin D3) [Vitamin D3] 1,000 unit Capsule 5,000 unit PO DAILY Qty: 0 cyanocobalamin (vitamin B-12) 1,000 MCG tablet extended release 5,000 mcg PO QDAY Qty: 0 magnesium 200 mg tablet 250 mg PO BID Qty: 0 aspirin 81 mg tablet,delayed release (DR/EC) 81 mg PO DAILY ferrous sulfate 325 mg (65 mg iron) Capsule, Extended Release 65 mg PO DAILY PreserVision AREDS-2 [id number]-svca-ea-mg Capsule 1 tab PO BID tamsulosin [Flomax] 0.4 mg capsule 0.4 mg PO DAILY Patient Comments: pt reports 0.8mg daily hydrochlorothiazide 25 mg tablet 25 mg PO DAILY omeprazole 20 mg capsule,delayed release(DR/EC) 20 mg PO BID tramadol 50 mg tablet 50 mg PO DAILY meloxicam 15 mg tablet 15 mg PO DAILY Referrals: Turner English DO [Primary Care Provider] - Stand Alone Forms: Patient Portal/API
[2024-02-20] MEDS: OXYCODONE/APAP 5/325 PREPACK 1 BOTTLE MISC (20:23)
[2024-02-20 20:25] VITALS: BP 132/88; PULSE 95; RESP 18; O2SAT 98
== END 2024-02-20 20:33 | disposition home or self-care (01) ==
PROVIDERS: Emergency Provider Emergency Medicine; Family Provider Family Medicine; PCP Family Medicine
DX: S32.10XA Unspecified fracture of sacrum, initial encounter for closed fracture (principal); R29.6 Repeated falls
CPT/HCPCS: 99281; 99283

== ENCOUNTER → 2024-03-29 13:43 | Outpatient (CLI) | payer MEDICARE, OTHER, SELFPAY ==
[2023-01-06 12:12] VITALS: BMI 30.7
--- NOTE | 2024-03-29 13:44 | DI.RAD.S_ITS ---
PROCEDURE: XR SACRUM COCCYX MIN 2V INDICATIONS: f/u fx TECHNIQUE: 3 views of the sacrum and coccyx acquired. COMPARISON: [facility], CT, CT PEL WO CON, 02/17/2024, 9:01. [facility], CR, XR SACRUM COCCYX MIN 2V, 02/14/2024, 12:19. FINDINGS: Bones: Healing fracture through the 3rd sacral elements again noted with remodeling and bridging callus. L 5-S1 discectomy and fusion with well-positioned posterior irasema and screw instrumentation. Atherosclerotic calcification in the abdominal aorta noted without evidence of aneurysm. Soft tissues: Visualized bowel gas pattern is normal. No suspicious soft tissue densities. IMPRESSION: Healing sacral fracture Instrumented L5-S1 discectomy and fusion Approved by: Krzysztof Caicedo M.D. on 03/29/2024 at 13:45
--- NOTE | 2024-03-29 13:44 | DI.RAD.S_ITS ---
PROCEDURE: XR LUMBAR SPINE 2-3V INDICATIONS: follow up on fracture TECHNIQUE: 3 views of the lumbar spine were acquired. COMPARISON: [facility], CR, XR LUMBAR SPINE MIN 4V, 02/14/2024, 12:19. FINDINGS: Bones: Laminectomy defects noted at L3, L4, L5 and S1 with L5-S1 discectomy with posterior irasema and screw instrumentation in good position. Diffuse disc space narrowing and hypertrophic facet joints noted throughout the lumbar spine. L2 wedge-shaped compression fracture stable. Mild convex right thoracolumbar scoliosis appreciated. Healing sacral fracture noted with remodeling and bridging callus compared to the prior exam. Soft tissues: Overlying bowel gas pattern is normal. No suspicious soft tissue calcifications. IMPRESSION: Healing sacral fracture with remodeling and bridging callus. Stable L2 compression fracture. L5-S1 instrumented discectomy and fusion. No hardware failure or loosening. Approved by: Krzysztof Caicedo M.D. on 03/29/2024 at 15:43
== END ==
LOC: LAB 13:44 → RAD 13:45
PROVIDERS: Family Provider Family Medicine; PCP Family Medicine; Referring Provider Physical Medicine & Rehabilitation; Visit Provider Physical Medicine & Rehabilitation
DX: S32.10XD Unspecified fracture of sacrum, subsequent encounter for fracture with routine healing (principal); I70.0 Atherosclerosis of aorta; S32.020D Wedge compression fracture of second lumbar vertebra, subsequent encounter for fracture with routine healing; X58.XXXD Exposure to other specified factors, subsequent encounter; Z98.1 Arthrodesis status
CPT/HCPCS: 72100; 72220

== ENCOUNTER → 2024-05-01 12:45 | Outpatient (CLI) | payer MEDICARE, OTHER, SELFPAY ==
[2023-01-06 12:12] VITALS: BMI 30.7
--- NOTE | 2024-05-01 12:47 | DI.RAD.S_ITS ---
PROCEDURE: XR SACRUM COCCYX MIN 2V INDICATIONS: f/u sacral fx TECHNIQUE: 3 views of the sacrum and coccyx acquired. COMPARISON: [facility], CR, XR SACRUM COCCYX MIN 2V, 03/29/2024, 13:47. FINDINGS: Bones: No fractures or dislocations. No suspicious bony lesions. Generalized decreased osseous mineralization noted. L5-S1 interbody fusion with posterior irasema and screw instrumentation. Periprosthetic lucency particularly around the S1 pedicle screws reflects loosening. Previously described sacral fracture shows additional blurring of the fracture lines and bridging callus. Atherosclerotic calcification in the abdominal aorta noted without evidence of aneurysm. Soft tissues: Visualized bowel gas pattern is normal. No suspicious soft tissue densities. IMPRESSION: Healing osteopenic sacral fracture Instrumented L5-S1 discectomy and fusion. Suggestion of S1 pedicle screw loosening without displacement. Approved by: Krzysztof Caicedo M.D. on 05/01/2024 at 17:15
== END ==
PROVIDERS: Family Provider Family Medicine; PCP Family Medicine; Referring Provider Physical Medicine & Rehabilitation; Visit Provider Physical Medicine & Rehabilitation
DX: S32.10XD Unspecified fracture of sacrum, subsequent encounter for fracture with routine healing (principal); M47.22 Other spondylosis with radiculopathy, cervical region; M47.816 Spondylosis without myelopathy or radiculopathy, lumbar region; M19.91 Primary osteoarthritis, unspecified site; G62.9 Polyneuropathy, unspecified; Z91.81 History of falling; Z98.1 Arthrodesis status
CPT/HCPCS: 72220; 99213

== ENCOUNTER → 2024-06-26 09:15 | Outpatient (CLI) | payer MEDICARE, OTHER, SELFPAY ==
[2023-01-06 12:12] VITALS: BMI 30.7
--- NOTE | 2024-06-26 09:17 | DI.RAD.S_ITS ---
PROCEDURE: XR SACRUM COCCYX MIN 2V INDICATIONS: COCCYX SACRUM FX TECHNIQUE: 3 views of the sacrum and coccyx acquired. COMPARISON: , CR, XR SACRUM COCCYX MIN 2V, 05/01/2024, 12:47. , CR, XR SACRUM COCCYX MIN 2V, 03/29/2024, 13:47. FINDINGS: Bones: Abnormal angulation of the mid sacrum due to prior fracture. Stable alignment. No dislocations. No suspicious bony lesions. L5-S1 pedicle screw fixation with intervertebral body spacer. Soft tissues: Visualized bowel gas pattern is normal. No suspicious soft tissue densities. Probable abdominal mesh. IMPRESSION: Stable appearance of the sacral fracture. Dictated by: Abdirizak Alvarado M.D. on 06/26/2024 at 13:33 Approved by: Abdirizak Alvarado M.D. on 06/26/2024 at 13:37
== END ==
PROVIDERS: Family Provider Family Medicine; PCP Family Medicine; Referring Provider Physical Medicine & Rehabilitation; Visit Provider Physical Medicine & Rehabilitation
DX: S32.10XA Unspecified fracture of sacrum, initial encounter for closed fracture (principal); M53.3 Sacrococcygeal disorders, not elsewhere classified; M47.26 Other spondylosis with radiculopathy, lumbar region; M47.22 Other spondylosis with radiculopathy, cervical region; M19.90 Unspecified osteoarthritis, unspecified site; G62.9 Polyneuropathy, unspecified
CPT/HCPCS: 72220; 99214

== ENCOUNTER 2024-06-29 14:29 | Outpatient (CLI) | payer MEDICARE, OTHER, SELFPAY ==
[2024-06-28 17:24] VITALS: BMI 30.7
[2024-06-29] VITALS (7 sets, daily range): BP systolic 148–175; BP diastolic 68–74; PULSE 63–93; RESP 14–17; TEMP 36.3; O2SAT 97–99
--- NOTE | 2024-06-29 14:30 | DI.RAD.S_ITS ---
PROCEDURE: PAIN L INTERLAMINAR/CAUDAL INJ INDICATIONS: Caudal ESTEPHANIE COMPARISON: None. FINDINGS/IMPRESSION: Fluoroscopic spot filming was performed to verify placement of spinal needles at the caudally level(s), as labeled on the films. Appropriate location(s) of the needle tip(s) was confirmed by injection of iodinated contrast. Dictated by: Alonso Long M.D. on 06/30/2024 at 12:46 Approved by: Alonso Long M.D. on 06/30/2024 at 12:50
[2024-06-29] MEDS: MIDAZOLAM 2 MG/2 ML VIAL 1 MG IV (16:22)
[2024-06-29] MEDS: BUPIVACAINE 0.25% (PF) VIAL 2 ML INJ (16:25)
[2024-06-29] MEDS: BETAMETHASONE 30 MG/5 ML MDV 12 MG INJ (16:26)
[2024-06-29] MEDS: iopamidoL 15 ML VIAL 3 ML INJ (16:26)
[2024-06-29] MEDS: DEXAMETHASONE 10 MG/ML VIAL 20 MG INJ (16:26)
--- NOTE | 2024-06-29 16:38 | P.PCN_ITS ---
Date/Time/Diagnoses Date of procedure: 06/29/24 Time of procedure: 16:38 Pre-procedure diagnosis: 1. 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 FLUOROSCOPICALLY GUIDED CONTRAST CONTROLLED CAUDAL EPIDURAL STEROID INJECTION, Indications: Ole is referred by Dr. English for treatment of Multilevel Stenosis Physician: Junior Coronel Total Fluoroscopy time (seconds): 12 Total sedation minutes: 12 Complications: none Procedure in detail & Post-procedure care: FINDINGS Multilevel Stenosis S/p Lami/Fusion Syndrome DESCRIPTION OF PROCEDURE Fluoroscopically guided, contrast controlled caudal epidural steroid injection with Conscious Sedation Following review of allergy and review of potential side effects and co mplications, including but not necessarily limited to infection, allergic reaction, local tissue breakdown, temporary or permanent nerve injury, stroke, paralysis, and possible , the patient indicated that they understood and agreed to proceed. An informed consent document was signed by the patient, witnessed by a nurse, and placed in the patient's chart. Additionally, other treatment options including medications, modalities, and physical therapy were reviewed with the patient. After review of previous anaesthesic history and IV conscious sedation the patient was deemed safe to proceed with today?s procedure with IV conscious sedation as ASA class II designation. Safety time-out was performed to confirm patient ID, procedure to be performed and site of procedure. IV sedation was accomplished with a combination of 1mg of Versed administered by the RN after DO order, titrated to patient comfort during the course of the procedure while the patient remained responsive to all verbal commands In the prone position, following sterile prep and drape of the lumbar region, the sacral hiatus was identified fluoroscopically. The skin was anesthetized via a 25-gauge, 1.5-inch needle with approximately 2cc of 1% lidocaine solution. At this point, a 25-gauge, 3inch needle was atraumatically introduced and advanced under fluoroscopic guidance to the corresponding sacral hiatus and entering the sacral canal. Following negative aspiration, injection of approximately 0.3cc of Isovue 300 confirmed interarticular placement without vascular uptake. Radiological data, including multiple fluoroscopic views of the lumbosacral spine, reveal a spinal needle in the sacral canal through the sacral hiatus. Subsequent views show flow of contrast material superiorly and inferiorly in the sacral canal without vascular or intrathecal uptake. At this point, a total of 6cc including 2cc or 12mg of betamethasone, 2cc or 20mg of dexamethasone and 2cc of 1% lidocaine solution was injected without complication. The patient tolerated the procedure well without signs or symptoms of complications prior to transfer to the recovery area continued monitoring without incident. The patient was then transferred to the recovery area where they were observed for an appropriate period of time after the injection. The patient reported a VAS score of 7 prior to the procedure and a post-procedure VAS of 2. POST OP INSTRUCTIONS The patient was provided a Pain Log to continue to record their response to the target-specific procedure prior to their follow-up visit with the referring physician. Additionally, specific post-injection care instructions and a contact number to our office were provided if concerns arise regarding possible complications associated with the procedure are suspected.
== END 2024-06-29 16:52 | disposition home or self-care (01) ==
LOC: RAD 14:29
PROVIDERS: Family Provider Family Medicine; PCP Family Medicine; Referring Provider Physical Medicine & Rehabilitation; Visit Provider Physical Medicine & Rehabilitation
DX: M48.061 Spinal stenosis, lumbar region without neurogenic claudication (principal); M96.1 Postlaminectomy syndrome, not elsewhere classified
CPT/HCPCS: 62323; 99152; J0702; J1100; J2250; J3490

== ENCOUNTER → 2024-07-10 12:04 | Outpatient (CLI) | payer MEDICARE, OTHER, SELFPAY ==
[2024-06-28 17:24] VITALS: BMI 30.7
--- NOTE | 2024-07-10 12:06 | DI.RAD.S_ITS ---
PROCEDURE: XR SACRUM COCCYX MIN 2V INDICATIONS: BACK PAIN TECHNIQUE: 3 views of the sacrum and coccyx acquired. COMPARISON: [facility], CR, XR SACRUM COCCYX MIN 2V, 06/26/2024, 9:31. FINDINGS: Bones: Again noted is prior fusion of lower lumbar spine at L5-S1 level. No evidence of hardware loosening or failure. Patient's known cysts mid sacral fracture with abnormal angulation remains unchanged. No new fracture or dislocation.. No suspicious bony lesions. Soft tissues: Visualized bowel gas pattern is normal. No suspicious soft tissue densities. IMPRESSION: Stable appearing mid sacral fracture with abnormal angulation not significantly changed from prior studies. No new fracture or dislocation. No suspicious bony lesions. No gross soft tissue abnormalities. Dictated by: Julius Basurto M.D. on 07/10/2024 at 13:14 Approved by: Julius Basurto M.D. on 07/10/2024 at 13:15
--- NOTE | 2024-07-10 12:06 | DI.RAD.S_ITS ---
PROCEDURE: XR CERVICAL SPINE 4V OR 5V INDICATIONS: NECK PAIN TECHNIQUE: 5 views of the cervical spine acquired. COMPARISON: [facility], CR, XR CERVICAL SPINE 4V OR 5V, 07/08/2023, 13:28. FINDINGS: Bones: There is mild straightening of normal cervical lordosis. Moderate to severe degenerative disc disease throughout cervical spine is seen progressed compared to previous study. No acute fracture or dislocation. Oblique images demonstrate extensive bilateral bony foraminal stenosis throughout cervical spine. Soft tissues: No prevertebral soft tissue swelling. IMPRESSION: Interval worsening of degenerative disc disease throughout cervical spine with bilateral bony foraminal stenosis throughout cervical spine seen on oblique views. No acute fracture or dislocation. Dictated by: Julius Basurto M.D. on 07/10/2024 at 13:15 Approved by: Julius Basurto M.D. on 07/10/2024 at 13:16
== END ==
PROVIDERS: Family Provider Family Medicine; PCP Family Medicine; Referring Provider Physical Medicine & Rehabilitation; Visit Provider Physical Medicine & Rehabilitation
DX: S32.10XD Unspecified fracture of sacrum, subsequent encounter for fracture with routine healing (principal); M47.22 Other spondylosis with radiculopathy, cervical region; M50.10 Cervical disc disorder with radiculopathy, unspecified cervical region; M48.02 Spinal stenosis, cervical region; Z98.1 Arthrodesis status
CPT/HCPCS: 72050; 72220

== ENCOUNTER 2024-10-12 08:24 | Outpatient (CLI) | payer MEDICARE, OTHER, SELFPAY ==
[2024-06-28 17:24] VITALS: BMI 30.7
[2024-10-12] VITALS (8 sets, daily range): BP systolic 116–170; BP diastolic 58–77; PULSE 13–78; RESP 13–17; TEMP 36.6; O2SAT 98–100
[2024-10-12] MEDS: MIDAZOLAM 2 MG/2 ML VIAL 1 MG IV ×2 (09:41→09:44)
[2024-10-12] MEDS: iopamidoL 15 ML VIAL 3 ML INJ (09:48)
[2024-10-12] MEDS: DEXAMETHASONE 10 MG/ML VIAL 20 MG INJ (09:48)
[2024-10-12] MEDS: BUPIVACAINE 0.25% (PF) VIAL 5 ML INJ (09:50)
--- NOTE | 2024-10-12 10:04 | P.PCN_ITS ---
Date/Time/Diagnoses Date of procedure: 10/12/24 Time of procedure: 10:04 Pre-procedure diagnosis: 1. CERVICAL STENOSIS, 2. CERVICAL HNP WITH UPPER EXTREMITY RADICULAR FEATURES Post-procedure diagnosis: same Procedure Notes Procedure: 1. FLUORSCOPICALLY GUIDED CONTRAST CONTROLLED INTERLAMINAR EPIDURAL STEROID INJECTION - C6/7 TL ESTEPHANIE Indications: Ole is referred by Dr. English for treatment of Cervical HNP with Upper Extremity Paresthesias. Physician: Junior Coronel Total Fluoroscopy time (seconds): 37 Total sedation minutes: 17 Complications: none Procedure in detail & Post-procedure care: FINDINGS Cervical Stenosis due to disc deterioration and nerve root irritation and nerve root irritation DESCRIPTION OF PROCEDURE Fluoroscopically guided, contrast-controlled C6/7 translaminar epidural steroid injection with conscious sedation. Following review of allergy and review of potential side effects and complications, including, but not necessarily limited to, infection, allergic reaction, local tissue breakdown, temporary as well as permanent nerve injury, stroke, paralysis, and possible , the patient indicated that patient understood and agreed to proceed. An informed consent document was signed by the patient, witnessed by a nurse, and placed in the patient's chart. Additionally, other treatment options including modalities, medications, and physical therapy were reviewed with the patient. After review of previous anaesthesic history and IV conscious sedation the patient was deemed safe to proceed with today?s procedure with IV conscious sedation as ASA class II designation. Safety time-out was performed to confirm patient ID, procedure to be performed and site of procedure. IV sedation was accomplished with a combination of 2mg of Versed administered by the RN after DO order, titrated to patient comfort during the course of the procedure while the patient remained responsive to all verbal commands. In the prone position, following sterile prep and drape of the cervical region, the C6/7 translaminar space was identified fluoroscopically. The skin was anesthetized via a 25-gauge 1.5-inch needle with 1% lidocaine solution. At this point, a 25-gauge, 2.5-inch short bevel spinal needle was atraumatically introduced and advanced under fluoroscopic guidance into epidural space at the C6/7 translaminar space. Depth was confirmed on lateral view. Radiological data, including multiple fluoroscopic views of the cervical spine, reveal a spinal needle at the C6/7 translaminar space. Lateral views then show placement of the needle in the epidural space. Subsequent views show contrast material flowing superiorly and inferiorly in the epidural space. DSA fluoroscopy with live contrast injection, once again, confirmed no vascular or intrathecal uptake. At this point, using loss of resistance technique with saline and air, the epidural space was entered. Following negative aspiration, injection of approximately 1.5 cc of Isovue-200 with live fluoroscopy in the AP view confirmed epidural flow in the epidural space without vascular or intrathecal uptake observed. Subsequently, a test dose of 1 cc of 1% lidocaine solution was injected and patient was observed for two minutes without signs or symptoms of complications, including abdominal pain, shortness of breath, bilateral upper or lower extremity weakness, nausea and vomiting, prior to steroid injection. At this point, 2cc or 20mg of dexamethasone was then injected without incident. The patient tolerated the procedure well without signs or symptoms of complic ations prior to being transferred to the recovery area for further monitoring, The patient was then transferred to the recovery area where they were observed for an appropriate period of time after the injection. The patient reported a VAS score of 6 prior to the procedure and a post-procedure VAS of 0. POST OP INSTRUCTIONS The patient was provided a Pain Log to continue to record their response to the target-specific procedure prior to follow-up visit with the referring provider. Additionally, specific post-injection care instructions and a contact number to our office were provided if concerns arise regarding possible complications associated with the procedure are suspected.
== END 2024-10-12 10:18 | disposition home or self-care (01) ==
LOC: RAD 08:24
PROVIDERS: Family Provider Family Medicine; PCP Family Medicine; Referring Provider Physical Medicine & Rehabilitation; Visit Provider Physical Medicine & Rehabilitation
DX: M48.02 Spinal stenosis, cervical region (principal); M50.123 Cervical disc disorder at C6-C7 level with radiculopathy
CPT/HCPCS: 62321; 99152; J1100; J2250